=== PATIENT | male | born 1960 | race Caucasian/White ===

== ENCOUNTER 2017-08-22 13:00 | Emergency (ER) | payer OTHER | END 2017-08-22 16:12 | disposition home or self-care (01) | LOC: ER 16:12 | DX: S60.212A Contusion of left wrist, initial encounter (principal); J44.9 Chronic obstructive pulmonary disease, unspecified; M19.90 Unspecified osteoarthritis, unspecified site; I10 Essential (primary) hypertension; W19.XXXA Unspecified fall, initial encounter; Y93.E1 Activity, personal bathing and showering; Y92.89 Other specified places as the place of occurrence of the external cause; Y99.8 Other external cause status | CPT/HCPCS: 73110; 99284 ==

== ENCOUNTER 2017-10-11 07:32 | Emergency (ER) | payer OTHER ==
[2017-10-11] MEDS: IBUPROFEN 800 MG TABLET. PO (09:39)
[2017-10-11] MEDS: HYDROcodone/APAP 5/325MG 1 TAB TABLET PO (09:39)
== END 2017-10-11 09:48 | disposition home or self-care (01) ==
LOC: ER 07:32
DX: S63.501A Unspecified sprain of right wrist, initial encounter (principal); S09.90XA Unspecified injury of head, initial encounter; I10 Essential (primary) hypertension; J44.9 Chronic obstructive pulmonary disease, unspecified; E10.9 Type 1 diabetes mellitus without complications; W01.0XXA Fall on same level from slipping, tripping and stumbling without subsequent striking against object, initial encounter; Y93.89 Activity, other specified; Y99.8 Other external cause status; Y92.89 Other specified places as the place of occurrence of the external cause
CPT/HCPCS: 29125; 70450; 73110; 99284-25

== ENCOUNTER 2018-03-06 21:27 | Emergency (ER) | payer OTHER ==
[~2018-03-06] VITALS: Ht 167.6 cm; Wt 72.6 kg
[~2018-03-06 21:27] MED LIST: IBUP-1060 PO
[2018-03-06] MEDS ORDERED: ONDANSETRON PF 4 MG/2 ML VIAL. IV ONE (22:00)
[2018-03-06] MEDS ORDERED: FAMOTIDINE 20 MG/2 ML VIAL IVP ONE (22:00)
[2018-03-06] MEDS ORDERED: MULTIVIT INFUSN,ADULT 4,VIT K 10 ML, THIAMINE 100 MG, FOLIC ACID 1 MG in IV NORMAL SALI... IV ONE (22:00)
[2018-03-06 22:14] LABS: BASO # 0.1 x10^3/uL (0.0-0.2); BASO % 1 % (0-3); EOS # 0.4 x10^3/uL (0.0-0.7); EOS % 4 % (0-3); HEMATOCRIT 42.5 % (39.0-53.0); HEMOGLOBIN 14.6 g/dL (13.0-17.5); LYMPH # 4.6 x10^3/uL (1.0-4.8); LYMPH % 51 % (24-48); MEAN CORPUSCULAR HEMOGLOBIN 32 pg (25-35); MEAN CORPUSCULAR HGB CONC 34 g/dL (31-37); MEAN CORPUSCULAR VOLUME 92 fL (79-100); MONO # 0.4 x10^3/uL (0.0-1.1); MONO % 4 % (0-9); NEUT # 3.6 x10^3uL (1.8-7.7); NEUT % 40 % (31-73); PLATELET COUNT 162 x10^3/uL (140-400); RED CELL DISTRIBUTION WIDTH 14.4 % (11.5-14.5)
[2018-03-06 22:27] LABS: BARBITURATES NEG (NEG); BENZODIAZEPINES NEG (NEG); CANNABINOIDS NEG (NEG); COCAINE POS (NEG); METHADONE NEG (NEG); OPIATES NEG (NEG); PHENCYCLIDINE NEG (NEG)
[2018-03-06 22:30] VITALS: BP 126/62
[2018-03-06 22:30] LABS: AMPHETAMINE/METHAMPHETAMINE NEG (NEG)
[2018-03-06 22:31] LABS: PROTHROMBIN TIME PATIENT 13.3 SEC (11.7-14.0)
[2018-03-06 22:31] LABS: ALBUMIN 3.8 g/dL (3.4-5.0); ALBUMIN/GLOBULIN RATIO 1.1 (1.0-1.7); CALCIUM 8.5 mg/dL (8.5-10.1); GFR 77.3; TOTAL BILIRUBIN 0.3 mg/dL (0.2-1.0); TOTAL PROTEIN 7.4 g/dL (6.4-8.2)
[2018-03-06 22:36] LABS: POTASSIUM 3.8 mmol/L (3.5-5.1)
--- NOTE | 2018-03-06 22:41 | PHYS DOC ---
Past Medical History Past Medical History: COPD, Diabetes-Type I, Hypertension Past Surgical History: No Surgical History Additional Past Surgical Histo: ARM Alcohol Use: None Drug Use: None Adult General Chief Complaint Chief Complaint: HEMATEMESIS/VOMITING BLOOD HPI HPI 57-year-old male with heavy alcohol abuse history states that he drinks approximately 12 beers daily presents stating that he is vomiting blood. He states he vomits approximately 2 pints of blood every day and has done so for the last 2 weeks. He denies any abdominal pain. He denies any dizziness. He states his stools have been normal in color and caliber. He's never had bleeding before.[] Review of Systems Review of Systems Constitutional: Denies fever or chills [] Eyes: Denies change in visual acuity, redness, or eye pain [] HENT: Denies nasal congestion or sore throat [] Respiratory: Denies cough or shortness of breath [] Cardiovascular: No additional information not addressed in HPI [] GI: Per history of present illness[] : Denies dysuria or hematuria [] Musculoskeletal: Denies back pain or joint pain [] Integument: Denies rash or skin lesions [] Neurologic: Denies headache, focal weakness or sensory changes [] Endocrine: Denies polyuria or polydipsia [] All other systems were reviewed and found to be within normal limits, except as documented in this note. Current Medications Current Medications Current Medications Medications (Trade) Dose Ordered Sig/Zo Start Time Stop Time Status Last Admin Dose Admin Famotidine (Pepcid Vial) 40 mg 1X ONCE 03/06/18 22:00 03/06/18 22:01 DC Multivitamins 10 ml/Thiamine HCl 100 mg/Folic Acid 1 mg/Sodium Chloride 1,011.2 ml @ 1,000.088 mls/hr 1X ONCE 03/06/18 22:00 03/06/18 23:00 03/06/18 22:18 1,000.088 MLS/HR Ondansetron HCl (Zofran) 4 mg 1X ONCE 03/06/18 22:00 03/06/18 22:01 DC 03/06/18 22:18 4 MG Allergies Allergies Allergies Coded Allergies Type Severity Reaction Last Updated Verified No Known Drug Allergies 10/11/17 No Physical Exam Physical Exam Constitutional: Well developed, well nourished, no acute distress, non-toxic appearance. [] HENT: Normocephalic, atraumatic, bilateral external ears normal, oropharynx moist, no oral exudates, nose normal. [] Eyes: PERRLA, EOMI, conjunctiva normal, no discharge. [] Neck: Normal range of motion, no tenderness, supple, no stridor. [] Cardiovascular:Heart rate regular rhythm, no murmur [] Lungs & Thorax: Bilateral breath sounds clear to auscultation [] Abdomen: Bowel sounds normal, soft, no tenderness, no masses, no pulsatile masses. [] Skin: Warm, dry, no erythema, no rash. [] Back: No tenderness, no CVA tenderness. [] Extremities: No tenderness, no cyanosis, no clubbing, ROM intact, no edema. [] Neurologic: Alert and oriented X 3, normal motor function, normal sensory function, no focal deficits noted. [] Psychologic: Affect normal, judgement normal, mood normal. [] Current Patient Data Vital Signs Vital Signs Date Time Temp Pulse Resp B/P (MAP) Pulse Ox O2 Delivery O2 Flow Rate FiO2 03/06/18 21:30 98.3 86 18 134/65 (88) 97 Room Air 98.3 Lab Values Laboratory Tests Test 03/06/18 22:05 03/06/18 22:10 03/06/18 22:15 White Blood Count 9.0 x10^3/uL (4.0-11.0) Red Blood Count 4.60 x10^6/uL (4.30-5.70) Hemoglobin 14.6 g/dL (13.0-17.5) Hematocrit 42.5 % (39.0-53.0) Mean Corpuscular Volume 92 fL (79-100) Mean Corpuscular Hemoglobin 32 pg (25-35) Mean Corpuscular Hemoglobin Concent 34 g/dL (31-37) Red Cell Distribution Width 14.4 % (11.5-14.5) Platelet Count 162 x10^3/uL (140-400) Neutrophils (%) (Auto) 40 % (31-73) Lymphocytes (%) (Auto) 51 % (24-48) H Monocytes (%) (Auto) 4 % (0-9) Eosinophils (%) (Auto) 4 % (0-3) H Basophils (%) (Auto) 1 % (0-3) Neutrophils # (Auto) 3.6 x10^3uL (1.8-7.7) Lymphocytes # (Auto) 4.6 x10^3/uL (1.0-4.8) Monocytes # (Auto) 0.4 x10^3/uL (0.0-1.1) Eosinophils # (Auto) 0.4 x10^3/uL (0.0-0.7) Basophils # (Auto) 0.1 x10^3/uL (0.0-0.2) Ethyl Alcohol Level 229 mg/dL (0-10) H Urine Opiates Screen Neg (NEG) Urine Methadone Screen Neg (NEG) Urine Barbiturates Neg (NEG) Urine Phencyclidine Screen Neg (NEG) Urine Amphetamine/Methamphetamine Neg (NEG) Urine Benzodiazepines Screen Neg (NEG) Urine Cocaine Screen Pos (NEG) Urine Cannabinoids Screen Neg (NEG) Urine Ethyl Alcohol Pos (NEG) Prothrombin Time 13.3 SEC (11.7-14.0) Prothrombin Time INR 1.1 (0.8-1.1) Laboratory Tests 03/06/18 22:05 EKG EKG [] Radiology/Procedures Radiology/Procedures [] Course & Med Decision Making Course & Med Decision Making Pertinent Labs and Imaging studies reviewed. (See chart for details) [ED course: Evaluation reveals a 57-year-old male in absolutely no distress. His physical exam was essentially unremarkable. His laboratory studies including hemoglobin and hematocrit were completely normal. Patient was told that his laboratory studies were normal and then decided that he wanted to leave. I encouraged the patient to stay for potential hospitalization for further evaluation of what he described his hematemesis. However the patient refused. He did not appear intoxicated and I felt he was capable of making this decision to leave.] Dragon Disclaimer Dragon Disclaimer This electronic medical record was generated, in whole or in part, using a voice recognition dictation system. Departure Departure Impression: Primary Impression: Hematemesis Additional Impression: Alcohol abuse Disposition: 01 HOME, SELF-CARE Condition: STABLE Referrals: NO PCP (PCP) Patient Instructions: Alcohol Problems, Hematemesis Additional Instructions: Is imperative that she follow-up with primary care physician in the next 1-2 days. Return to the emergency department with any new or concerning symptoms Problem Qualifiers Primary Impression: Hematemesis Nausea presence: without nausea Qualified Codes: K92.0 - Hematemesis RUKHSANA DEXTER DO Mar 06, 2018 22:41
== END 2018-03-06 22:46 | disposition home or self-care (01) ==
LOC: ER 21:27
DX: K92.0 Hematemesis (principal); I10 Essential (primary) hypertension; E10.9 Type 1 diabetes mellitus without complications; J44.9 Chronic obstructive pulmonary disease, unspecified; F10.10 Alcohol abuse, uncomplicated; Y90.7 Blood alcohol level of 200-239 mg/100 ml
CPT/HCPCS: 36415; 80053; 80307; 83690; 85025; 85610; 96365; 96375; 99284; G0480; J2405; J7030; S0028; G0479

== ENCOUNTER 2021-04-28 04:09 | Inpatient (IN) | payer OTHER ==
[~2021-04-28] VITALS: Ht 170.2 cm; Wt 90.9 kg
[~2021-04-28 04:09] MED LIST changes: +ASPI-886 PO; +HYDR-2761 PO; +LISI-130 PO; +METO-239 PO
--- NOTE | 2021-04-28 04:26 | PHYS DOC ---
Past Medical History Past Medical History: CAD, CHF, COPD, Diabetes-Type II, Hypertension, RI, Seizure Past Surgical History: Other Additional Past Surgical Histo: L ARM, cardiac stents; bilateral carpal igor Smoking Status: Current Every Day Smoker Alcohol Use: None Drug Use: Amphetamine, Other General Adult EDM: Chief Complaint: SHORTNESS OF BREATH HPI: HPI: 60-year-old male patient with a history of smoking, COPD, CAD, CHF presents the emergency department complaining of shortness of air and total body swelling in particular in his groin and his legs that has developed gradually over the course of the past 5 days. He notes that he recently got diagnosed with CHF and is not on diuretics to this point. He feels more fatigued than usual. He admits to trouble urinating for the past 5 days. He is denying chest pain, fever, chills, cough, abdominal pain. He was previously in our hospital 3 months ago and was admitted for a similar presentation and was positive for amphetamines during that encounter. Today, he denies methamphetamine use and says the has not used in quite some time. Review of Systems: Review of Systems: Constitutional: Negative except what was mentioned in HPI. Eyes: Negative except what was mentioned in HPI. HENT: Negative except what was mentioned in HPI. Respiratory: Negative except what was mentioned in HPI. Cardiovascular: Negative except what was mentioned in HPI. GI: Negative except what was mentioned in HPI. : Negative except what was mentioned in HPI. Musculoskeletal: Negative except what was mentioned in HPI. Integument: Negative except what was mentioned in HPI. Neurologic: Negative except what was mentioned in HPI. Heart Score: C/O Chest Pain: No Family History: Family History: non contributory Allergies: Allergies: Allergies Coded Allergies Type Severity Reaction Last Updated Verified ibuprofen Allergy Mild NAUSEA 01/18/21 Yes Physical Exam: PE: Constitutional: Moderate distress, patient is obviously swollen everywhere. HENT: Atraumatic, bilateral external ears normal, nose normal. Eyes: PERRLA, EOMI, conjunctiva normal, no discharge. Neck: Normal range of motion, supple, no stridor. Cardiovascular: Tachycardic. 2+ radial pulses Lungs & Thorax: No respiratory distress, symmetrical expansion. Breath sounds quiet on left side, slight wheeze in on right side Abdomen: Soft, no tenderness. Abdomen is swollen, and groin is swollen Genitourinary: Testicles and penis are swollen with edema Skin: Warm, dry. Extremities: No tenderness, no cyanosis, ROM intact, 2+ edema lower extremities and equal Neurologic: Alert and oriented X 3, normal motor function, normal sensory function, no focal deficits noted. GCS 15. Psychologic: Affect normal, judgment normal, mood normal. Current Patient Data: Labs: Laboratory Tests Test 04/28/21 04:25 04/28/21 04:35 White Blood Count 6.6 x10^3/uL (4.0-11.0) Red Blood Count 5.05 x10^6/uL (4.30-5.70) Hemoglobin 15.2 g/dL (13.0-17.5) Hematocrit 46.0 % (39.0-53.0) Mean Corpuscular Volume 91 fL (79-100) Mean Corpuscular Hemoglobin 30 pg (25-35) Mean Corpuscular Hemoglobin Concent 33 g/dL (31-37) Red Cell Distribution Width 17.1 % (11.5-14.5) Platelet Count 176 x10^3/uL (140-400) Neutrophils (%) (Auto) 59 % (31-73) Lymphocytes (%) (Auto) 29 % (24-48) Monocytes (%) (Auto) 9 % (0-9) Eosinophils (%) (Auto) 2 % (0-3) Basophils (%) (Auto) 1 % (0-3) Neutrophils # (Auto) 3.9 x10^3/uL (1.8-7.7) Lymphocytes # (Auto) 1.9 x10^3/uL (1.0-4.8) Monocytes # (Auto) 0.6 x10^3/uL (0.0-1.1) Eosinophils # (Auto) 0.1 x10^3/uL (0.0-0.7) Basophils # (Auto) 0.1 x10^3/uL (0.0-0.2) Sodium Level 143 mmol/L (136-145) Potassium Level 4.1 mmol/L (3.5-5.1) Chloride Level 105 mmol/L (98-107) Carbon Dioxide Level 32 mmol/L (21-32) Anion Gap 6 (6-14) Blood Urea Nitrogen 16 mg/dL (8-26) Creatinine 1.4 mg/dL (0.7-1.3) Estimated GFR (Cockcroft-Gault) 51.9 BUN/Creatinine Ratio 11 (6-20) Glucose Level 91 mg/dL (70-99) Calcium Level 9.0 mg/dL (8.5-10.1) Total Bilirubin 0.8 mg/dL (0.2-1.0) Aspartate Amino Transf (AST/SGOT) 36 U/L (15-37) Alanine Aminotransferase (ALT/SGPT) 34 U/L (16-63) Alkaline Phosphatase 76 U/L (46-116) Troponin I Quantitative 0.132 ng/mL (0.000-0.055) TW-Dwf-N-Type Natriuretic Peptide 27611 pg/mL (0-124) Total Protein 8.5 g/dL (6.4-8.2) Albumin 4.0 g/dL (3.4-5.0) Albumin/Globulin Ratio 0.9 (1.0-1.7) Urine Collection Type Unknown Urine Color Yellow Urine Clarity Clear Urine pH 5.5 (<5.0-8.0) Urine Specific [place] 1.015 (1.000-1.030) Urine Protein 30 mg/dL (NEG-TRACE) Urine Glucose (UA) Negative mg/dL (NEG) Urine Ketones (Stick) Negative mg/dL (NEG) Urine Blood Moderate (NEG) Urine Nitrite Negative (NEG) Urine Bilirubin Negative (NEG) Urine Urobilinogen Dipstick 1.0 mg/dL (0.2 mg/dL) Urine Leukocyte Esterase Negative (NEG) Urine RBC 20-40 /HPF (0-2) Urine WBC Rare /HPF (0-4) Urine Squamous Epithelial Cells Occ /LPF Urine Bacteria 0 /HPF (0-FEW) Urine Mucus Mod /LPF Urine Opiates Screen Neg (NEG) Urine Methadone Screen Neg (NEG) Urine Barbiturates Neg (NEG) Urine Phencyclidine Screen Neg (NEG) Urine Amphetamine/Methamphetamine Pos (NEG) Urine Benzodiazepines Screen Neg (NEG) Urine Cocaine Screen Neg (NEG) Urine Cannabinoids Screen Neg (NEG) Urine Ethyl Alcohol Neg (NEG) Vital Signs: Vital Signs Date Time Temp Pulse Resp B/P (MAP) Pulse Ox O2 Delivery O2 Flow Rate FiO2 04/28/21 04:38 106 175/108 EKG: EKG: Time read: 0447 Sinus tachycardia rate of 106, no ST-T wave changes, no ectopic beats, normal axis, normal TN, QRS, and QTc intervals. Impression: Normal EKG. interpreted by Danis crandall D.O. Radiology/Procedures: Radiology/Procedures: Moderate bilateral airspace opacities consistent with pulmonary edema. Left- sided pleural effusion, no pneumothorax. Cardiomegaly. No widening of mediastinum. No obvious free air seen. Impression: Likely pulmonary edema. Interpreted by Danis crandall D.O. Course & Med Decision Making: Course & Med Decision Making patient with clinical evidence for anasarca, he has a history of meth use and last admission he had a positive troponin as well, his trop was elevated this morning. He was given lasix, ntg, will admit for continued diuresis. bladder scan with 400 cc in bladder and straight cath used to obtain urine, patient felt better. Elevated troponin likely demand ischemia most likely from methamphetamine use. Cardiology consult placed. patient without chest pain here. patient will be admitted to Dr. Roca My Orders - DANIS HAWKINS DO Procedure Category Date Status Time Vital Signs Monitoring ER 04/28/21 Transmitted 04:17 Blood Pressure ER 04/28/21 Transmitted Monitoring 04:17 Cardiac Monitoring ER 04/28/21 Transmitted 04:17 Cbc W [employer] LAB 04/28/21 Complete 04:17 Ua, Cult If Indicated LAB 04/28/21 Complete 04:17 Drugs Of Abuse Ur LAB 04/28/21 Complete 04:17 Portable Chest 1v RAD 04/28/21 Logged 04:17 Nt-Pro Bnp LAB 04/28/21 Complete 04:17 Troponini LAB 04/28/21 Complete 04:17 Troponini LAB 04/28/21 Logged 07:17 Troponini LAB 04/28/21 Logged 10:17 Comprehensive LAB 04/28/21 Complete Metabolic Panel 04:17 Furosemide Inj (Lasix) PHA 04/28/21 Complete 05:00 Nitroglycerin PHA 04/28/21 In Process Sublingual (Nitrostat) 04:30 12 Lead Ekg EKG 04/28/21 Logged 04:20 Er Bridge Order ADT 04/28/21 Transmitted 04:57 Code Status CODE 04/28/21 Transmitted 04:57 Vital Signs, Per Unit TONY 04/28/21 In Process Protocol 04:57 Cardiac DIET 04/28/21 Transmitted Breakfast Ondansetron Pf PHA 04/28/21 In Process (Zofran) 05:00 Acetaminophen PHA 04/28/21 In Process (Tylenol) 05:00 Consult Physician By CONS 04/28/21 Transmitted Name 04:57 Vital Signs Q4h TONY 04/28/21 In Process 04:57 Departure Departure Impression: Primary Impression: Anasarca Additional Impressions: Amphetamine abuse CHF (congestive heart failure) Disposition: 09 ADMITTED INPATIENT Admitting Physician: VITALIY Noble) Condition: STABLE Referrals: NO PCP (PCP) DANIS HAWKINS DO Apr 28, 2021 04:26
[2021-04-28] MEDS ORDERED: NITROGLYCERIN SUBLINGUAL 0.4 MG BOTTLE OF 25. SL PRN (04:30)
[2021-04-28 04:34] LABS: BASO # 0.1 x10^3/uL (0.0-0.2); BASO % 1 % (0-3); EOS # 0.1 x10^3/uL (0.0-0.7); EOS % 2 % (0-3); HEMOGLOBIN 15.2 g/dL (13.0-17.5); LYMPH # 1.9 x10^3/uL (1.0-4.8); LYMPH % 29 % (24-48); MEAN CORPUSCULAR HEMOGLOBIN 30 pg (25-35); MEAN CORPUSCULAR HGB CONC 33 g/dL (31-37); MEAN CORPUSCULAR VOLUME 91 fL (79-100); MONO # 0.6 x10^3/uL (0.0-1.1); MONO % 9 % (0-9); NEUT # 3.9 x10^3/uL (1.8-7.7); NEUT % 59 % (31-73); PLATELET COUNT 176 x10^3/uL (140-400); RED BLOOD COUNT 5.05 x10^6/uL (4.30-5.70); RED CELL DISTRIBUTION WIDTH 17.1 % (11.5-14.5); WHITE BLOOD COUNT 6.6 x10^3/uL (4.0-11.0)
[2021-04-28 04:41] LABS: BILIRUBIN,URINE NEGATIVE (NEG); CLARITY,URINE CLEAR; COLOR,URINE YELLOW; NITRITE,URINE NEGATIVE (NEG); PH,URINE 5.5 (<5.0-8.0); PROTEIN,URINE 30 mg/dL (NEG-TRACE)
[2021-04-28 04:43] LABS: CREATININE 1.4 mg/dL (0.7-1.3); GFR 51.9; POTASSIUM 4.1 mmol/L (3.5-5.1)
[2021-04-28 04:46] LABS: BACTERIA,URINE 0 /HPF (0-FEW); RBC,URINE 20-40 /HPF (0-2); WBC,URINE RARE /HPF (0-4)
[2021-04-28 04:48] LABS: AMPHETAMINE/METHAMPHETAMINE POS (NEG); BARBITURATES NEG (NEG); BENZODIAZEPINES NEG (NEG); CANNABINOIDS NEG (NEG); COCAINE NEG (NEG); METHADONE NEG (NEG); OPIATES NEG (NEG); PHENCYCLIDINE NEG (NEG)
[2021-04-28 04:49] LABS: ALBUMIN/GLOBULIN RATIO 0.9 (1.0-1.7); TOTAL BILIRUBIN 0.8 mg/dL (0.2-1.0); TOTAL PROTEIN 8.5 g/dL (6.4-8.2)
[2021-04-28] MEDS ORDERED: ACETAMINOPHEN 325 MG TABLET. PO PRN (05:00)
[2021-04-28] MEDS ORDERED: FUROSEMIDE 40 MG/4 ML VIAL. IVP ONE (05:00)
[2021-04-28] MEDS ORDERED: ONDANSETRON PF 4 MG/2 ML VIAL. IVP PRN (05:00)
[2021-04-28 06:30] VITALS: BP 158/95
--- NOTE | 2021-04-28 06:30 | NUR ---
Pt admitted to room 673 from ER via cart. Pt ambulatory to bed. Pt placed on heart monitor and SPO2 monitoring. Pt reports SOA on exertion, audible wheeze heard. Pt reports cough. Pt has generalized edema all over body. Full assessment not completed, as next shift will perform admission assessment d/t shift change. Admission history done. Pt knows the pharmacy he uses, but does not know his medication names that he takes. Call light given to pt and instructed on use, pt alem. Will report to next shift.
[2021-04-28] MEDS ORDERED: FLU VACC QUAD 21-22 (6MOS+) PF 0.5 ML SYRINGE. VAX IM ONE (07:00)
--- NOTE | 2021-04-28 08:13 | RAD ---
EXAMINATION: Chest radiograph. VIEWS: Single view COMPARISON: 01/21/2021 INDICATION:60 years, Male, shortness of breath. FINDINGS: Stable cardiomegaly. Similar diffuse bilateral interstitial reticulations. New small left pleural eff usion. No pneumothorax. No acute osseous process. IMPRESSION: 1. Findings suggesting of interstitial pulmonary edema versus atypical pneumonia. 2. New small left pleural effusion. Electronically signed by: Ayala Pope MD (04/28/2021 8:11 AM) [id number]
[2021-04-28] MEDS ORDERED: LISI20TA18 PO (09:30)
--- NOTE | 2021-04-28 10:06 | PDOC2 ---
AIDA BARBOSA BURRER HAND 04/28/21 1006: CARDIAC CONSULT DATE OF CONSULT Date of Consult DATE: 04/28/21 TIME: 09:57 REASON FOR CONSULT Reason for Consult: Elevated trop, CHF REFERRING PHYSICIAN Referring Physician: Dr. Roca SOURCE Source: Chart review, Patient HISTORY OF PRESENT ILLNESS HISTORY OF PRESENT ILLNESS This is a 60 yo male who presented secondary to shortness of breath and fluid retention. Patient reports he has been short of breath and retaining fluid for the last couple of months. Has been worse in the last couple of weeks. Reports compliance with medications, although cannot tell me what he takes. Denies any chest pain, palpitations, dizziness, diaphoresis, or nausea/vomiting. No recent fevers or illness. Reports swelling in his bilateral LE up the tight level. Also retaining fluid in his abdomen. Denies drug use, but UDS + for methamphetamines. PAST MEDICAL HISTORY Cardiovascular: AFIB (s/p ablation ), CAD, CHF, HTN, Hyperlipidemia Pulmonary: Asthma, COPD GI: GERD Hepatobiliary: Cirrhosis Psych: Addictions Endocrine: Diabetes PAST SURGICAL HISTORY Past Surgical History: Other (see PMH) FAMILY HISTORY Family History: Hypertension SOCIAL HISTORY Smoke: <1 pack per day ALCOHOL: none Drugs: Crystal meth Lives: Roommate CURRENT MEDICATIONS CURRENT MEDICATIONS Current Medications Medications (Trade) Dose Ordered Sig/Zo Route PRN Reason Start Time Stop Time Status Last Admin Dose Admin Furosemide (Lasix) 40 mg 1X ONCE IVP 04/28/21 05:00 04/28/21 05:01 DC 04/28/21 04:37 Nitroglycerin (Nitrostat) 0.4 mg PRN Q5MIN PRN SL CHEST PAIN 04/28/21 04:30 04/28/21 04:38 ALLERGIES ALLERGIES: Coded Allergies: ibuprofen (Verified Adverse Reaction, Intermediate, NAUSEA, 04/28/21) ROS Review of System 14 point ROS conducted with pertinent positives noted above in hPI PHYSICAL EXAM General: Alert, Oriented X3, Cooperative, No acute distress HEENT: Atraumatic Lungs: Other (crackles ) Heart: Regular rate (SR/St) Abdomen: Other (ascites ) Extremities: Other (2-3+ bilateral LE edema up to thigh level ) Neuro: Normal speech, Sensation intact Psych/Mental Status: Mental status NL, Mood NL MUSCULOSKELETAL: Osteoarthritic changes both hands VITALS/I&O VITALS/I&O: Vital Signs Date Time Temp Pulse Resp B/P (MAP) Pulse Ox O2 Delivery O2 Flow Rate FiO2 04/28/21 06:30 97.7 99 18 158/95 (116) 99 Nasal Cannula 2.0 97.7 I & O 04/27/21 04/27/21 04/28/21 15:00 23:00 07:00 Output Total 400 ml Balance -400 ml LABS Lab: Laboratory Tests Test 04/28/21 04:25 04/28/21 04:35 04/28/21 06:13 04/28/21 07:15 White Blood Count 6.6 x10^3/uL (4.0-11.0) Red Blood Count 5.05 x10^6/uL (4.30-5.70) Hemoglobin 15.2 g/dL (13.0-17.5) Hematocrit 46.0 % (39.0-53.0) Mean Corpuscular Volume 91 fL (79-100) Mean Corpuscular Hemoglobin 30 pg (25-35) Mean Corpuscular Hemoglobin Concent 33 g/dL (31-37) Red Cell Distribution Width 17.1 % (11.5-14.5) H Platelet Count 176 x10^3/uL (140-400) Neutrophils (%) (Auto) 59 % (31-73) Lymphocytes (%) (Auto) 29 % (24-48) Monocytes (%) (Auto) 9 % (0-9) Eosinophils (%) (Auto) 2 % (0-3) Basophils (%) (Auto) 1 % (0-3) Neutrophils # (Auto) 3.9 x10^3/uL (1.8-7.7) Lymphocytes # (Auto) 1.9 x10^3/uL (1.0-4.8) Monocytes # (Auto) 0.6 x10^3/uL (0.0-1.1) Eosinophils # (Auto) 0.1 x10^3/uL (0.0-0.7) Basophils # (Auto) 0.1 x10^3/uL (0.0-0.2) Sodium Level 143 mmol/L (136-145) Potassium Level 4.1 mmol/L (3.5-5.1) Chloride Level 105 mmol/L (98-107) Carbon Dioxide Level 32 mmol/L (21-32) Anion Gap 6 (6-14) Blood Urea Nitrogen 16 mg/dL (8-26) Creatinine 1.4 mg/dL (0.7-1.3) H Estimated GFR (Cockcroft-Gault) 51.9 BUN/Creatinine Ratio 11 (6-20) Glucose Level 91 mg/dL (70-99) Calcium Level 9.0 mg/dL (8.5-10.1) Total Bilirubin 0.8 mg/dL (0.2-1.0) Aspartate Amino Transferase (AST) 36 U/L (15-37) Alanine Aminotransferase (ALT) 34 U/L (16-63) Alkaline Phosphatase 76 U/L (46-116) Troponin I Quantitative 0.132 ng/mL (0.000-0.055) 0.109 ng/mL (0.000-0.055) TC-Awp-V-Type Natriuretic Peptide 97385 pg/mL (0-124) H Total Protein 8.5 g/dL (6.4-8.2) H Albumin 4.0 g/dL (3.4-5.0) Albumin/Globulin Ratio 0.9 (1.0-1.7) L Urine Collection Type Unknown Urine Color Yellow Urine Clarity Clear Urine pH 5.5 (<5.0-8.0) Urine Specific [place] 1.015 (1.000-1.030) Urine Protein 30 mg/dL (NEG-TRACE) Urine Glucose (UA) Negative mg/dL (NEG) Urine Ketones (Stick) Negative mg/dL (NEG) Urine Blood Moderate (NEG) Urine Nitrite Negative (NEG) Urine Bilirubin Negative (NEG) Urine Urobilinogen Dipstick 1.0 mg/dL (0.2 mg/dL) Urine Leukocyte Esterase Negative (NEG) Urine RBC 20-40 /HPF (0-2) Urine WBC Rare /HPF (0-4) Urine Squamous Epithelial Cells Occ /LPF Urine Bacteria 0 /HPF (0-FEW) Urine Mucus Mod /LPF Urine Opiates Screen Neg (NEG) Urine Methadone Screen Neg (NEG) Urine Barbiturates Neg (NEG) Urine Phencyclidine Screen Neg (NEG) Urine Amphetamine/Methamphetamine Pos (NEG) Urine Benzodiazepines Screen Neg (NEG) Urine Cocaine Screen Neg (NEG) Urine Cannabinoids Screen Neg (NEG) Urine Ethyl Alcohol Neg (NEG) SARS-CoV-2 RNA (OFELIA) Negative (Negative) SARS-CoV-2 Antigen (Rapid) Negative (NEGATIVE) Laboratory Tests 04/28/21 04:25 Laboratory Tests 04/28/21 04:25 EKG EKG INTRACARDIAC CATHETER ABLATION WITH COMPREHENSIVE ELECTROPHYSIOLOGIC EVALUATION - ATRIAL TACHYCARDIA Study date: 11/13/20 IMPRESSION: Successful CTI-dependent Atrial Flutter ablation Intra-atrial pacing and intraventricular pacing. PLAN: - Pain control as needed - Remove sheaths in recovery - Bedrest 6 hours after sheath removal - Anti-arrhythmic drug: None --- resume Toprol-XL 25 mg daily for heart failure - Anticoagulation: Resume Xarelto as soon as 4 hours after sheath removal if hemostasis present and no hematoma - Follow-up: EP RHIANNON in [address] Faustin as needed ECHOCARDIOGRAM ECHOCARDIOGRAM 11/13/20 - TRANSESOPHAGEAL ECHO Interpretation Summary Study performed to assess for LA thrombus prior to planned ablation. Left Atrium: No thrombus present in left atrium or left atrial appendage. No spontaneous echo contrast. Patent foramen ovale present with left to right shunting indicated by color flow Doppler. The left ventricular systolic function is moderately reduced. The visually estimated ejection fraction is 35%. There is diffuse hypokinesis. The right ventricle is mildly dilated. The right ventricular systolic function is moderately reduced. Mitral Valve: Normal valve structure. Mild to moderate regurgitation. No pericardial effusion. 3-D imaging was performed during the procedure for further evaluation of cardiac structure and function. See remainder of report for additional findings. DATE: 01/19/21 <Conclusion> The left ventricle is normal size. The ejection fraction is moderately severely impaired. The Ejection Fraction is 30 to 35%. Global hypokinesis is present but worse in the septal wall. Doppler and Color Flow revealed no significant aortic regurgitation. There is no significant aortic valvular stenosis. Doppler and Color-flow revealed moderate mitral regurgitation. Doppler and Color Flow revealed mild to moderate tricuspid regurgitation. 03/21/21 - 2D + DOPPLER ECHO Interpretation Summary Moderately dilated LV cavity size with eccentric hypertrophy and severely reduced global systolic function, EF ~ 20-25% Grade III (severe) left ventricle diastolic dysfunction. Mildly enlarged right ventricle with moderately reduced systolic function Mild left atrial enlargement. Moderate right atrial margin Dilated mitral annulus with moderate regurgitation Dilated tricuspid annulus with moderate regurgitation Estimated peak systolic PA pressure = 44 mmHg No pericardial effusion Compared with the prior echo/Doppler study on 5-7-21, there has been further interval decline in global LV systolic function. The patient appears to be in sinus rhythm on the current study. The previous study appeared to be atrial fibrillation. HEART CATH HEART CATH CARDIAC CATHETERIZATION REPORT DATE: 11/11/2020 SELECTIVE CORONARY ANGIOGRAPHY: Left main: The left main coronary artery arises normally from the left coronary cusp and gives rise to left anterior descending and left circumflex arteries. It has a 20% stenosis in its distal portion. Left anterior descending artery: The left anterior descending artery is a large caliber vessel and gives rise to 4 diagonals along its course. The proximal LAD has 20% to 30% stenosis. The midportion of the LAD after the takeoff of the 3rd diagonal has 30% to 40% stenosis. There is moderate 60% to 70% stenosis of the ostial 3rd diagonal. Left circumflex artery: The left circumflex artery has a 50% stenosis in its proximal portion with an eccentric plaque. It gives rise to 1 obtuse marginal branch which has a severe 70% stenosis in its midportion. Right coronary artery: The right coronary artery arises normally from the right coronary cusp and is a dominant vessel. It distally bifurcates into the right PDA and PLV branches. It has a 30% to 40% stenosis in its proximal portion and a 50% stenosis in its distal portion. The LVEDP was 30 mmHg. CONTRAST: 60cc AIR KERMA: 536 mGy FLUOROSCOPY TIME: 5.5 minutes FINAL IMPRESSION: Moderate obstructive coronary artery disease involving the LAD and moderate to severe coronary artery disease involving the circumflex artery as described above. Increased left and right-sided filling pressures. Low cardiac output/index. ASSESSMENT/PLAN ASSESSMENT/PLAN 1. Acute respiratory failure secondary to CHF 2. Acute on chronic systolic CHF 3. Nonischemic cardiomyopathy ; recent echo with LVEF 20-25% 4. CAD; recent cath with moderate nonobstructive disease as noted above. 5. Mild troponin elevation; peak 0.13. Type II, demand ischemia 6. PAFIB/flutter; s/p recent cardiac ablation at by Dr. Faustin as noted above. Previously on Xarelto for stroke prophylaxis. Presently SR 7. Accelerated hypertension; laible 8. Hyperlipidemia 9. Diabetes, II 10. CAROL 11. PAD; recent arterial duplex with concerns for right common iliac artery occlusion. Was evaluated by vascular at that time. No critical limb ischemia present 12. Cirrhosis; KAMARA vs alcohol related given h/o heavy use 13. Tobaccoism 14. Substance abuse; UDS + for methamphetamines 15. Suspected noncompliance Recommendations Diuresis with monitoring or renal function 2000cc FR, 2Gm Na diet Monitor daily weight, I and O's Secondary prevention measures Resume home therapy; metoprolol, losartan, spironolactone . Xarelto for stroke prophylaxis No statin with liver disease Supportive care Consider for outpatient ICD therapies if compliance can be established Discussed/encouraged compliance and cessation from recreational drugs. YO MEAD MD 04/29/21 1417: CARDIAC CONSULT ASSESSMENT/PLAN ASSESSMENT/PLAN Patient seen and examined 04/28/2021. Agree with VARNISHER APPRENTICE's assessment and plan. Acute respiratory failure secondary to acute on chronic systolic heart failure. 2D echo showed LVEF 20 to 25%. Slight troponin elevation probably demand ischemia. Recent cardiac catheterization showed moderate nonobstructive coronary artery disease. Continue diuresis with close monitoring of renal function. PAF s/p ablation maintaining sinus rhythm PAD clinically stable Agree with outpatient evaluation for AICD implantation Thank you for your consultation AIDA BARBOSA APRN Apr 28, 2021 10:06 YO MEAD MD Apr 29, 2021 14:17
[2021-04-28 10:52] VITALS: BP 151/78
[2021-04-28] MEDS ORDERED: LISINOPRIL 20 MG TABLET PO SCH (12:00)
--- NOTE | 2021-04-28 12:08 | HP ---
DATE OF SERVICE: 04/28/2021 ADMIT DATE: 04/28/2021 CHIEF COMPLAINT: Shortness of breath and fluid retention. HISTORY OF PRESENT ILLNESS: The patient is a pleasant 60-year-old male with a previous known coronary artery disease and heart failure. He basically presented with volume overload, shortness of breath. He was somewhat hypoxic in the ER, chest x-ray was showing vascular congestion. His BNP level was 10,144. His troponin was a little high at 1.3. I discussed the case with ER physician. We are going to admit the patient for diuresis and cardiac monitoring and consultation with Cardiology. PAST MEDICAL HISTORY: CHF, CAD, COPD, diabetes, hypertension, myocardial infarction, seizures, left arm surgery, cardiac stents, bilateral carpal tunnel surgery, tobacco abuse, amphetamine abuse. ALLERGIES: IBUPROFEN. FAMILY HISTORY: Coronary artery disease. SOCIAL HISTORY: He smokes and apparently uses amphetamine. No other drugs. MEDICATIONS: Reviewed, please refer to the MRAD, he is on metoprolol 25 a day, lisinopril 20 a day, and aspirin 81 a day. PHYSICAL EXAMINATION: VITALS: Within normal limits and are stable. GENERAL: Resting with no apparent distress. HEENT: Normal cephalic atraumatic, external auditory canals are patent EYES: Extraocular muscles are intact, pupils are equally round and reactive to light and accommodation MUSCULOSKELETAL: Well developed, well nourished, good range of motion ENDOCRINE: No thyromegaly was palpated LYMPHATICS: No cervical chain or axillary nodes were noted HEMATOPOIETIC: No bruising NECK: Supple, no JVD, no thyromegaly was noted. LUNGS: Slight bibasilar crackles. HEART: Distant S1, S2. ABDOMEN: Decreased bowel sounds, little distended. EXTREMITIES: 1-2+ edema. NEUROLOGIC: Resting with no apparent distress. PSYCHIATRIC: He is resting with no apparent distress. SKIN: No ulcerations or rashes, good skin turgor, no jaundice. VASCULAR: Good capillary refill, neurovascular bundle appears to be intact. LABORATORY DATA: Electrolytes: Sodium 143, potassium 4.1, chloride 105, bicarb 32, BUN 16, creatinine 1.4, glucose 91. Troponin 0.132. BNP 10,144. White count 6.6, hemoglobin 15.2, platelets 176. Urinalysis negative. Drug screen positive for amphetamines/methamphetamines. COVID testing is negative. Chest x-ray shows vascular congestion with heart failure versus atypical pneumonia and a small left pleural effusion. By my eye, he appears to have a generous cardiac silhouette as well. His COVID testing was negative. ASSESSMENT AND PLAN: Acute on chronic systolic and diastolic heart failure. The patient has been admitted. We have consulted Cardiology. They have seen the patient. We will continue IV Lasix. Cardiac monitoring, serial enzymes, serial EKGs, trend labs. Home meds. Deep venous thrombosis prophylaxis. Full code. We have ordered a flu vaccine for him. ALESHA DR: Stuart TID: [id number]
[2021-04-28] MEDS ORDERED: FERROUS SULFATE 325 MG TABLET. PO PRN (13:15)
[2021-04-28] MEDS ORDERED: LOSA-73 PO (13:24)
[2021-04-28] MEDS ORDERED: RIVA20TA2 PO (13:24)
[2021-04-28] MEDS ORDERED: SPIR50TA4 PO (13:24)
[2021-04-28] MEDS ORDERED: SERT-267 PO (13:24)
[2021-04-28] MEDS ORDERED: FURO80TA3 PO (13:24)
[2021-04-28] MEDS ORDERED: ATOR20TA58 PO (13:24)
[2021-04-28] MEDS ORDERED: FERR325T14 PO (13:24)
[2021-04-28 14:05] VITALS: BP 177/89
[2021-04-28] MEDS: ASPIRIN ENTERIC COATED 81 MG TABLET.DR. PO SCH (14:33)
[2021-04-28] MEDS: METOPROLOL SUCC 24HR ER 25 MG TAB.ER.24H. PO SCH (14:36)
[2021-04-28] MEDS: FUROSEMIDE 40 MG/4 ML VIAL. IVP SCH (14:36)
--- NOTE | 2021-04-28 15:11 | NUR ---
SS following for discharge planning. SS reviewed pt chart and discussed with pt RN. Pt is from home and is currently requiring oxygen at two liters nasal canula. COVID19 negative. Cardiology consulted. Pt on IV Lasix. SS will continue to follow for discharge planning.
[2021-04-28] MEDS: RIVAROXABAN 10 MG TABLET. PO SCH (18:08)
[2021-04-28 19:50] VITALS: BP 143/67
[2021-04-28] MEDS: ATORVASTATIN CALCIUM 20 MG TABLET PO SCH (20:09)
[2021-04-28 22:50] VITALS: BP 132/65
[2021-04-29 02:31] VITALS: BP 123/75
[2021-04-29 07:00] VITALS: BP 169/89
[2021-04-29] MEDS: SERTRALINE 50 MG TABLET. PO SCH (08:18)
[2021-04-29] MEDS: SPIRONOLACTONE 25 MG TABLET PO SCH (08:19)
[2021-04-29] MEDS: ASPIRIN ENTERIC COATED 81 MG TABLET.DR. PO SCH (08:19)
[2021-04-29] MEDS: LOSARTAN POTASSIUM 50 MG TABLET. PO SCH (08:20)
[2021-04-29] MEDS: METOPROLOL SUCC 24HR ER 25 MG TAB.ER.24H. PO SCH (08:20)
[2021-04-29] MEDS: FUROSEMIDE 40 MG/4 ML VIAL. IVP SCH ×2 (08:21→13:12)
--- NOTE | 2021-04-29 08:58 | PDOC ---
[employer] PROGRESS NOTE Date of Service DOS: DATE: 04/29/21 TIME: 08:58 Chief Complaint Chief Complaint Acute on chronic systolic and diastolic heart failure CAD COPD diabetes hypertension Hx myocardial infarction Hx seizures left arm surgery cardiac stents bilateral carpal tunnel surgery tobacco abuse amphetamine abuse. History of Present Illness History of Present Illness 04/29 Patient seen and examined at bedside No acute overnight events Patient satting ~ 91 on 4L by NC Discussed patient's tobacco use, cessation encouraged Discussed pt's liver, cessation of any hepatotoxic drugs and EtOH encouraged Charts reviewed Discussed with RN and SW Vitals/I&O Vitals/I&O: Vital Signs Date Time Temp Pulse Resp B/P (MAP) Pulse Ox O2 Delivery O2 Flow Rate FiO2 04/29/21 08:20 90 169/89 04/29/21 07:00 98.1 21 91 Nasal Cannula 3.0 98.1 I & O 04/28/21 04/28/21 04/29/21 15:00 23:00 07:00 Intake Total 400 ml 580 ml 700 ml Output Total 2150 ml 2800 ml Balance -1750 ml -2220 ml 700 ml Physical Exam General: Alert, Oriented X3, Cooperative, No acute distress Heart: Regular rate (SR/St) Lungs: Crackles Abdomen: Other (ascites ) Extremities: Other (2-3+ bilateral LE edema up to thigh level ) Skin: No rashes, No breakdown Labs Labs: Laboratory Tests Test 04/28/21 10:55 Troponin I Quantitative 0.090 ng/mL (0.000-0.055) Review of Systems Review of Systems: ROS negative Assessment and Plan Assessmemt and Plan Problems Medical Problems: (1) Amphetamine abuse Status: Acute (2) Anasarca Status: Acute (3) CHF (congestive heart failure) Status: Acute Acute on chronic systolic and diastolic heart failure CAD COPD diabetes hypertension Hx myocardial infarction Hx seizures left arm surgery cardiac stents bilateral carpal tunnel surgery tobacco abuse amphetamine abuse. Plan Cardiology has been following, input appreciated Consult placed to pulmonology and GI, inputs appreciated Continue monitoring on telemetry Continue diuresis Added solumedrol Added DuoNebs Titrate O2 PRN Trend labs Restarted home meds as indicated Full Code Discharge Disposition Pending Comment Review of Relevant I have reviewed the following items villa (where applicable) has been applied. Medications: Current Medications Medications (Trade) Dose Ordered Sig/Zo Route PRN Reason Start Time Stop Time Status Last Admin Dose Admin Aspirin (Ecotrin) 81 mg DAILYWBKFT PO 04/28/21 12:00 04/29/21 08:19 Lisinopril (Prinivil) 20 mg DAILY PO 04/28/21 12:00 04/28/21 15:04 DC 04/28/21 14:34 Metoprolol Succinate (Toprol Xl) 25 mg DAILY PO 04/28/21 12:00 04/29/21 08:20 Atorvastatin Calcium (Lipitor) 20 mg HS PO 04/28/21 21:00 04/28/21 20:09 Losartan Potassium (Cozaar) 25 mg DAILY PO 04/29/21 09:00 04/29/21 08:20 Rivaroxaban (Xarelto) 20 mg DAILYWSUP PO 04/28/21 17:00 04/28/21 18:08 Spironolactone (Aldactone) 50 mg DAILY PO 04/29/21 09:00 04/29/21 08:19 Furosemide (Lasix) 40 mg [id number] IVP 04/28/21 14:00 04/29/21 08:21 Sertraline HCl (Zoloft) 50 mg DAILY PO 04/29/21 09:00 04/29/21 08:18 Justifications for Admission Other Justification SUPRIYA AGOSTO III DO Apr 29, 2021 08:58
[2021-04-29] MEDS ORDERED: methylPREDNISolone SOD SUCC PF 40 MG/ML VIAL. IV SCH (10:00)
[2021-04-29 11:00] VITALS: BP 126/60
[2021-04-29 11:06] LABS: PROTHROMBIN TIME PATIENT 20.6 SEC (11.7-14.0)
--- NOTE | 2021-04-29 11:34 | PDOC2 ---
GI CONSULT Date of Service: DATE: 04/29/21 TIME: 11:18 Reason For Consult: cirrhosis HPI: HPI: 60 y/o male evaluated in ER for shortness of breath and swelling (tells me legs and scrotum), admitted w/ resp failure/CHF. He denies GI complaints. He was told he had cirrhosis at . "They didn't know why." He doesn't see any doctors currently. Denies reflux/heartburn, dysphagia, n/v, abd pain, diarrhea, constipation, h ematochezia, melena, change in appetite, or weight loss. CT A/P in 01/2021 noted nodular contour of liver and diverticulosis. He thinks he had previous EGD and colonoscopy but that was years ago and he can't remember where. Denies GB, pancreas, and PUD history. He mentions occasional hemoptysis and hematuria. 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 On Xarelto, ASA, Lasix, Aldactone, and iron here. PMH: PMH: A Fib, CAD, CHF, NICM, HTN, HLD, asthma, COPD, DM cardiac ablation, cardiac cath FH: Family History: Other (not sure) Social History: Smoke: <1 pack per day ALCOHOL: heavy (tells me sober since his 30s but was seen intoxicated in our ER in 2018 ) Drugs: Marijuana (he says long ago), Crystal meth (tox screen +, he denies rec ent use) ROS: GEN: Denies fevers, chills, sweats HEENT: Denies blurred vision, sore throat CV: Denies chest pain RESP: breathing better today GI: Per HPI : +hematuria ENDO: Denies weight changes NEURO: Denies confusion, dizziness MSK: Denies weakness, joint pain/swelling SKIN: Denies jaundice, pruritus Vitals: Vitals: Vital Signs Date Time Temp Pulse Resp B/P (MAP) Pulse Ox O2 Delivery O2 Flow Rate FiO2 04/29/21 11:00 97.8 88 19 126/60 (82) 96 Room Air 97.8 04/29/21 08:00 4.0 Labs: Labs: Laboratory Tests Test 04/29/21 10:20 Prothrombin Time 20.6 SEC (11.7-14.0) Prothromb Time International Ratio 1.8 (0.8-1.1) Allergies: Coded Allergies: ibuprofen (Verified Adverse Reaction, Intermediate, NAUSEA, 04/28/21) Medications: Current Medications Medications (Trade) Dose Ordered Sig/Zo Route PRN Reason Start Time Stop Time Status Last Admin Dose Admin Aspirin (Ecotrin) 81 mg DAILYWBKFT PO 04/28/21 12:00 04/29/21 08:19 Lisinopril (Prinivil) 20 mg DAILY PO 04/28/21 12:00 04/28/21 15:04 DC 04/28/21 14:34 Metoprolol Succinate (Toprol Xl) 25 mg DAILY PO 04/28/21 12:00 04/29/21 08:20 Atorvastatin Calcium (Lipitor) 20 mg HS PO 04/28/21 21:00 04/28/21 20:09 Losartan Potassium (Cozaar) 25 mg DAILY PO 04/29/21 09:00 04/29/21 08:20 Rivaroxaban (Xarelto) 20 mg DAILYWSUP PO 04/28/21 17:00 04/28/21 18:08 Spironolactone (Aldactone) 50 mg DAILY PO 04/29/21 09:00 04/29/21 08:19 Furosemide (Lasix) 40 mg [id number] IVP 04/28/21 14:00 04/29/21 08:21 Sertraline HCl (Zoloft) 50 mg DAILY PO 04/29/21 09:00 04/29/21 08:18 Methylprednisolone Sodium Succinate (SOLU-Medrol 40MG VIAL) 40 mg Q12HR IV 04/29/21 10:00 04/29/21 10:23 Imaging: Imaging: CXR 04/28 IMPRESSION: 1. Findings suggesting of interstitial pulmonary edema versus atypical pneumonia. 2. New small left pleural effusion. PE: GEN: NAD HEENT: Atraumatic, PERRL LUNGS: diminished anteriorly, NC 4L HEART: RRR ABD: NABS, S/ND/NT EXTREMITY: BLE and scrotal edema SKIN: No rashes, no jaundice NEURO/PSYCH: A & O 3 A/P: A/P: Resp failure/CHF, NICM Possible cirrhosis, h/o alcohol abuse CRC screen - ?had colonoscopy at some point - details unclear Diverticulosis +meth COVID negative -- Continue per cardiology. Re: possible cirrhosis, plt and LFTs are currently normal, though INR is 1.8. We will check viral Hepatitis panel and liver US. Question if actually compliant w/ medications. Encouraged avoidance of drugs and alcohol. Details re: past scopes unclear - probably should at least have surveillance colonoscopy as outpt. ELEAZAR NIELSON Apr 29, 2021 11:34
[2021-04-29] MEDS: IPRATRPIUM/ALBUTEROL 0.5/2.5MG 3 ML NEBU. NEB SCH ×4 (11:43→21:04)
[2021-04-29 11:57] LABS: BASE EXCESS ABG 5 mmol/L (-3-3); HCO3 ABG 31 mmol/L (21-28); PCO2 ABG 53 mmHg (35-46); PO2 ABG 78 mmHg (65-108); SAT O2 ABG 94 % (92-99)
[2021-04-29 11:59] LABS: FIO2 ABG 36/4L
--- NOTE | 2021-04-29 13:17 | PDOC ---
PULMONARY PROGRESS NOTES DATE: 04/29/21 TIME: 13:17 Vitals Vital Signs Date Time Temp Pulse Resp B/P (MAP) Pulse Ox O2 Delivery O2 Flow Rate FiO2 04/29/21 11:46 96 Nasal Cannula 4.0 04/29/21 11:00 97.8 88 19 126/60 (82) 97.8 Lungs: Crackles Labs Laboratory Tests Test 04/28/21 04:25 04/28/21 04:35 04/28/21 06:13 04/28/21 07:15 White Blood Count 6.6 x10^3/uL (4.0-11.0) Red Blood Count 5.05 x10^6/uL (4.30-5.70) Hemoglobin 15.2 g/dL (13.0-17.5) Hematocrit 46.0 % (39.0-53.0) Mean Corpuscular Volume 91 fL (79-100) Mean Corpuscular Hemoglobin 30 pg (25-35) Mean Corpuscular Hemoglobin Concent 33 g/dL (31-37) Red Cell Distribution Width 17.1 % (11.5-14.5) Platelet Count 176 x10^3/uL (140-400) Neutrophils (%) (Auto) 59 % (31-73) Lymphocytes (%) (Auto) 29 % (24-48) Monocytes (%) (Auto) 9 % (0-9) Eosinophils (%) (Auto) 2 % (0-3) Basophils (%) (Auto) 1 % (0-3) Neutrophils # (Auto) 3.9 x10^3/uL (1.8-7.7) Lymphocytes # (Auto) 1.9 x10^3/uL (1.0-4.8) Monocytes # (Auto) 0.6 x10^3/uL (0.0-1.1) Eosinophils # (Auto) 0.1 x10^3/uL (0.0-0.7) Basophils # (Auto) 0.1 x10^3/uL (0.0-0.2) Sodium Level 143 mmol/L (136-145) Potassium Level 4.1 mmol/L (3.5-5.1) Chloride Level 105 mmol/L (98-107) Carbon Dioxide Level 32 mmol/L (21-32) Anion Gap 6 (6-14) Blood Urea Nitrogen 16 mg/dL (8-26) Creatinine 1.4 mg/dL (0.7-1.3) Estimated GFR (Cockcroft-Gault) 51.9 BUN/Creatinine Ratio 11 (6-20) Glucose Level 91 mg/dL (70-99) Calcium Level 9.0 mg/dL (8.5-10.1) Total Bilirubin 0.8 mg/dL (0.2-1.0) Aspartate Amino Transf (AST/SGOT) 36 U/L (15-37) Alanine Aminotransferase (ALT/SGPT) 34 U/L (16-63) Alkaline Phosphatase 76 U/L (46-116) Troponin I Quantitative 0.132 ng/mL (0.000-0.055) 0.109 ng/mL (0.000-0.055) UY-Avh-T-Type Natriuretic Peptide 97041 pg/mL (0-124) Total Protein 8.5 g/dL (6.4-8.2) Albumin 4.0 g/dL (3.4-5.0) Albumin/Globulin Ratio 0.9 (1.0-1.7) Urine Collection Type Unknown Urine Color Yellow Urine Clarity Clear Urine pH 5.5 (<5.0-8.0) Urine Specific [place] 1.015 (1.000-1.030) Urine Protein 30 mg/dL (NEG-TRACE) Urine Glucose (UA) Negative mg/dL (NEG) Urine Ketones (Stick) Negative mg/dL (NEG) Urine Blood Moderate (NEG) Urine Nitrite Negative (NEG) Urine Bilirubin Negative (NEG) Urine Urobilinogen Dipstick 1.0 mg/dL (0.2 mg/dL) Urine Leukocyte Esterase Negative (NEG) Urine RBC 20-40 /HPF (0-2) Urine WBC Rare /HPF (0-4) Urine Squamous Epithelial Cells Occ /LPF Urine Bacteria 0 /HPF (0-FEW) Urine Mucus Mod /LPF Urine Opiates Screen Neg (NEG) Urine Methadone Screen Neg (NEG) Urine Barbiturates Neg (NEG) Urine Phencyclidine Screen Neg (NEG) Urine Amphetamine/Methamphetamine Pos (NEG) Urine Benzodiazepines Screen Neg (NEG) Urine Cocaine Screen Neg (NEG) Urine Cannabinoids Screen Neg (NEG) Urine Ethyl Alcohol Neg (NEG) SARS-CoV-2 RNA (OFELIA) Negative (Negative) SARS-CoV-2 Antigen (Rapid) Negative (NEGATIVE) Test 04/28/21 10:55 04/29/21 10:20 04/29/21 10:04/29/21 11:52 Troponin I Quantitative 0.090 ng/mL (0.000-0.055) Prothrombin Time 20.6 SEC (11.7-14.0) Prothromb Time International Ratio 1.8 (0.8-1.1) Hepatitis A IgM Antibody Nonreactive (Nonreactive) Hepatitis B Surface Antigen Nonreactive (Nonreactive) Hepatitis B Core IgM Antibody Nonreactive (Nonreactive) Hepatitis C IgG Antibody Nonreactive (Nonreactive) O2 Saturation 94 % (92-99) Arterial Blood pH 7.39 (7.35-7.45) Arterial Blood pCO2 at Patient Temp 53 mmHg (35-46) Arterial Blood pO2 at Patient Temp 78 mmHg (65-108) Arterial Blood HCO3 31 mmol/L (21-28) Arterial Blood Base Excess 5 mmol/L (-3-3) FiO2 36/4l Laboratory Tests Test 04/29/21 10:20 04/29/21 10:26 04/29/21 11:52 Prothrombin Time 20.6 SEC (11.7-14.0) Prothromb Time International Ratio 1.8 (0.8-1.1) Hepatitis A IgM Antibody Nonreactive (Nonreactive) Hepatitis B Surface Antigen Nonreactive (Nonreactive) Hepatitis B Core IgM Antibody Nonreactive (Nonreactive) Hepatitis C IgG Antibody Nonreactive (Nonreactive) O2 Saturation 94 % (92-99) Arterial Blood pH 7.39 (7.35-7.45) Arterial Blood pCO2 at Patient Temp 53 mmHg (35-46) Arterial Blood pO2 at Patient Temp 78 mmHg (65-108) Arterial Blood HCO3 31 mmol/L (21-28) Arterial Blood Base Excess 5 mmol/L (-3-3) FiO2 36/4l Medications Active Scripts Medications Dose Route/Sig Max Daily Dose Days Date Category Dose Instructions Sertraline Hcl 50 Mg Tablet 50 Mg PO DAILY 04/28/21 Reported Xarelto (Rivaroxaban) 20 Mg Tablet 1 Tab PO DAILY 30 04/28/21 Reported with food Losartan Potassium 50 Mg Tablet 25 Mg PO DAILY 04/28/21 Reported Atorvastatin Calcium 20 Mg Tablet 20 Mg PO HS 04/28/21 Reported Spironolactone 50 Mg Tablet 1 Tab PO DAILY 04/28/21 Reported Furosemide 80 Mg Tablet 80 Mg PO DAILY 04/28/21 Reported Ferrous Sulfate 325 Mg Tablet 1 Tab PO PRN Q48HR PRN 04/28/21 Reported Metoprolol Succinate ( Xl ) (Metoprolol Succinate) 25 Mg Tab.er.24h 25 Mg PO DAILY 01/21/21 Rx Impression . Full consult dictated Acute on chronic heart failure Acute on chronic cor pulmonale COPD Tobacco dependent Discontinue steroids Diuresis ZOLTAN HUGGINS MD Apr 29, 2021 13:17
--- NOTE | 2021-04-29 13:42 | PDOC ---
PROGRESS NOTES Date of Service: DATE: 04/29/21 TIME: 13:41 Subjective Subjective No new issues/complaints Objective Objective Vital Signs Date Time Temp Pulse Resp B/P (MAP) Pulse Ox O2 Delivery O2 Flow Rate FiO2 04/29/21 11:46 96 Nasal Cannula 4.0 04/29/21 11:00 97.8 88 19 126/60 (82) 97.8 Intake and Output 04/29/21 07:00 Intake Total 1680 ml Output Total 4950 ml Balance -3270 ml Intake Oral 1680 ml Output Urine Total 4950 ml # Voids 1 # Bowel Movements 1 Physical Exam Abdomen: Other (ascites ) Heart: Regular rate (SR/St) Extremities: Other (2-3+ bilateral LE edema up to thigh level ) General: Alert, Oriented X3, Cooperative, No acute distress HEENT: Atraumatic Lungs: Other (crackles ) Neuro: Normal speech, Sensation intact Psych/Mental Status: Mental status NL, Mood NL Skin: No rashes, No breakdown Assessment Assessment 1. Acute respiratory failure secondary to ac on chr systolic CHF 2. Acute on chronic systolic CHF: better compensated with diuresis 3. Nonischemic cardiomyopathy ; recent echo with LVEF 20-25% - consider AICD implantation as outpatient 4. CAD; recent cath with moderate nonobstructive disease as noted above. 5. Mild troponin elevation; peak 0.13. Type II, probably demand ischemia 6. PAFIB/flutter; s/p recent cardiac ablation, maintaining SR 7. Accelerated hypertension; labile but better controlled 8. Hyperlipidemia 9. Diabetes, II: per IM 10. CAROL 11. PAD; recent arterial duplex with concerns for right common iliac artery occlusion. Was evaluated by vascular at that time. No critical limb ischemia present 12. Cirrhosis; KAMARA vs alcohol related given h/o heavy use 13. Tobaccoism 14. Substance abuse; UDS + for methamphetamines 15. Suspected noncompliance Plan Plan of Care Problems Medical Problems: (1) Amphetamine abuse Status: Acute (2) Anasarca Status: Acute (3) CHF (congestive heart failure) Status: Acute Comment Review of Relevant I have reviewed the following items villa (where applicable) has been applied. Labs Laboratory Tests Test 04/29/21 10:20 04/29/21 10:26 04/29/21 11:52 Prothrombin Time 20.6 SEC (11.7-14.0) Prothromb Time International Ratio 1.8 (0.8-1.1) Hepatitis A IgM Antibody Nonreactive (Nonreactive) Hepatitis B Surface Antigen Nonreactive (Nonreactive) Hepatitis B Core IgM Antibody Nonreactive (Nonreactive) Hepatitis C IgG Antibody Nonreactive (Nonreactive) O2 Saturation 94 % (92-99) Arterial Blood pH 7.39 (7.35-7.45) Arterial Blood pCO2 at Patient Temp 53 mmHg (35-46) Arterial Blood pO2 at Patient Temp 78 mmHg (65-108) Arterial Blood HCO3 31 mmol/L (21-28) Arterial Blood Base Excess 5 mmol/L (-3-3) FiO2 36/4l Medications Current Medications Albuterol/ Ipratropium (Duoneb) 3 ml Q4HRS W/A NEB Last administered on 04/29/21at 11:43; Start 04/29/21 at 10:00 Atorvastatin Calcium (Lipitor) 20 mg HS PO Last administered on 04/28/21at 20:09; Start 04/28/21 at 21:00 Famotidine (Pepcid) 20 mg QHS PO ; Start 04/29/21 at 21:00 Furosemide (Lasix) 40 mg [id number] IVP Last administered on 04/29/21at 13:12; Start 04/28/21 at 14:00 Losartan Potassium (Cozaar) 25 mg DAILY PO Last administered on 04/29/21at 08:20; Start 04/29/21 at 09:00 Methylprednisolone Sodium Succinate (SOLU-Medrol 40MG VIAL) 40 mg Q12HR IV Last administered on 04/29/21at 10:23; Start 04/29/21 at 10:00 Rivaroxaban (Xarelto) 20 mg DAILYWSUP PO Last administered on 04/28/21at 18:08; Start 04/28/21 at 17:00 Sertraline HCl (Zoloft) 50 mg DAILY PO Last administered on 04/29/21at 08:18; Start 04/29/21 at 09:00 Spironolactone (Aldactone) 50 mg DAILY PO Last administered on 04/29/21at 08:19; Start 04/29/21 at 09:00 Vitals/I & O Vital Sign - Last 24 Hours 04/28/21 04/28/21 04/28/21 04/28/21 14:05 14:34 14:36 19:50 Temp 98.5 99.0 98.5 99.0 Pulse 103 103 103 91 Resp 18 22 B/P (MAP) 177/89 (118) 177/89 177/89 143/67 (92) Pulse Ox 96 99 O2 Delivery Nasal Cannula Nasal Cannula O2 Flow Rate 2.0 2.0 04/28/21 04/28/21 04/29/21 04/29/21 20:00 22:50 02:31 07:00 Temp 97.8 98.3 98.1 97.8 98.3 98.1 Pulse 98 82 90 Resp 21 B/P (MAP) 132/65 (87) 123/75 (91) 169/89 (115) Pulse Ox 100 100 91 O2 Delivery Nasal Cannula Nasal Cannula Nasal Cannula Nasal Cannula O2 Flow Rate 2.0 2.0 2.0 3.0 04/29/21 04/29/21 04/29/21 04/29/21 08:00 08:20 08:20 11:00 Temp 97.8 97.8 Pulse 89 90 88 Resp 19 B/P (MAP) 169/89 169/89 126/60 (82) Pulse Ox 96 O2 Delivery Nasal Cannula Room Air O2 Flow Rate 4.0 04/29/21 11:46 Pulse Ox 96 O2 Delivery Nasal Cannula O2 Flow Rate 4.0 Intake and Output 04/28/21 04/28/21 04/29/21 15:00 23:00 07:00 Intake Total 400 ml 580 ml 700 ml Output Total 2150 ml 2800 ml Balance -1750 ml -2220 ml 700 ml YO MEAD MD Apr 29, 2021 13:41
--- NOTE | 2021-04-29 13:48 | CONS ---
DATE OF CONSULTATION: 04/29/2021 ATTENDING PHYSICIAN: Esthela Hinton DO CONSULTING PHYSICIAN: Alexis Clifton MD REASON FOR CONSULTATION: The patient is seen in pulmonary consultation at the request of Dr. Hinton for increasing shortness of air, abnormal chest x-ray. HISTORY OF PRESENT ILLNESS: The patient is a 60-year-old that normally goes to the Cardiology Clinic at [facility]. He presented with increasing shortness of breath, fluid retention and increasing lower extremity edema. The patient states that he normally takes a water pill. He has been compliant with his water pill. He has been watching his salt intake, presented with increasing shortness of breath, cough, mostly nonproductive. He continues to smoke. He does not wear oxygen at home. He denies any use of drugs, but his urine drug screen was positive for methamphetamine. He denies alcohol intake. He states that he used to smoke in the past. He has been vaccinated with 1 dose of COVID vaccine. PAST MEDICAL HISTORY: Chronic atrial fibrillation, he has had previous ablation, coronary artery disease, chronic hypertension, chronic heart failure, hyperlipidemia, COPD, tobacco dependence, cirrhosis, diabetes, drug use. PAST SURGICAL HISTORY: No major surgeries. Review of systems; he has had a transechocardiogram in 11/2020 revealing EF of 35%. His right ventricle was mildly dilated. He had a heart catheterization on 11/11/2020 revealing moderate obstructive coronary artery disease involving the LAD, moderate severe coronary artery disease involving the circumflex artery. He had increasing left and right-sided filling pressures at the time. SOCIAL HISTORY: Prior history of alcoholism. The patient denies any current use of drugs. His urine drug screen came back positive. He continues to smoke. ALLERGIES: IBUPROFEN. FAMILY HISTORY: Noncontributory. REVIEW OF SYSTEMS: As indicated above, otherwise a 10-point system was reviewed and negative. PHYSICAL EXAMINATION: VITAL SIGNS: Currently requiring anywhere between 2-4 liters of oxygen supplementation. He has been afebrile. No respiratory distress. HEENT AND NECK: Jugular venous distention was elevated. CHEST: Full expansion. LUNGS: Poor flow with no wheezes. CARDIOVASCULAR: Regular rate and rhythm with S1, S2, no S3. ABDOMEN: Soft. EXTREMITIES: 1+ edema. NEUROLOGIC: The patient was awake, alert, following commands. A detailed neuro exam was not performed. LABORATORY DATA: White count was 6.6, hemoglobin and hematocrit were noted. Arterial blood gas; pH of 7.39, PaCO2 of 53, pO2 of 78 on 4 liters. Electrolytes were noted. Creatinine was elevated. Troponin was elevated. Serology for hepatitis B was negative for [id number] was negative. Urine drug screen was positive for methamphetamine and amphetamines. A chest x-ray as indicated above. IMPRESSION: 1. Acute hypoxemic respiratory failure secondary to acute on chronic diastolic and systolic heart failure. 2. Acute on chronic cor pulmonale. 3. Tobacco dependent. 4. Chronic obstructive pulmonary disease, unknown FEV1. 5. Coronary artery disease as described above. 6. Elevated troponin, suspect non-ST segment elevation myocardial infarction. 7. Paroxysmal atrial fibrillation with recent ablation. 8. Cirrhosis. 9. Positive urine drug screen. PLAN: 1. Recommend continue diuresis per cardiology. Monitor renal function. 2. No need for steroids or antibiotics. 3. The patient instructed on the importance of discontinuing tobacco and drug use. 4. The patient is instructed on the importance of being compliant with his medications, suspect he was noncompliant as a result, he ended up with decompensation of his heart function. 5. Continue p.r.n. nebulized treatments. 6. No need for antibiotics. 7. Continue Xarelto. JORGE DR: Nevaeh TID: [id number]
[2021-04-29 15:00] VITALS: BP 131/76
--- NOTE | 2021-04-29 16:38 | NUR ---
SS following up with discharge planning. SS reviewed pt chart and discussed with pt RN. Pt is currently requiring oxygen at 2-4 liters nasal canula. Pt on IV Lasix. Methamphetamine positive. PAT team referral made for assessment and recommendations. SS will continue to follow for discharge planning.
[2021-04-29] MEDS: RIVAROXABAN 10 MG TABLET. PO SCH (17:46)
[2021-04-29 19:10] VITALS: BP 138/66
[2021-04-29] MEDS: ATORVASTATIN CALCIUM 20 MG TABLET PO SCH (20:44)
[2021-04-29] MEDS: FAMOTIDINE 20 MG TABLET. PO SCH (20:44)
[2021-04-29 23:05] VITALS: BP 111/58
[2021-04-30 02:50] VITALS: BP 121/78
[2021-04-30 05:14] LABS: BASO % 0 % (0-3); EOS % 0 % (0-3); HEMATOCRIT 43.3 % (39.0-53.0); HEMOGLOBIN 14.2 g/dL (13.0-17.5); LYMPH % 8 % (24-48); MEAN CORPUSCULAR HEMOGLOBIN 30 pg (25-35); MEAN CORPUSCULAR HGB CONC 33 g/dL (31-37); MEAN CORPUSCULAR VOLUME 90 fL (79-100); MONO # 0.8 x10^3/uL (0.0-1.1); MONO % 6 % (0-9); NEUT # 11.1 x10^3/uL (1.8-7.7); NEUT % 86 % (31-73); PLATELET COUNT 171 x10^3/uL (140-400); RED BLOOD COUNT 4.81 x10^6/uL (4.30-5.70); RED CELL DISTRIBUTION WIDTH 16.7 % (11.5-14.5); WHITE BLOOD COUNT 12.8 x10^3/uL (4.0-11.0)
[2021-04-30 05:40] LABS: CALCIUM 8.9 mg/dL (8.5-10.1); CREATININE 1.2 mg/dL (0.7-1.3); POTASSIUM 4.1 mmol/L (3.5-5.1)
[2021-04-30 07:00] VITALS: BP 125/71
[2021-04-30] MEDS: IPRATRPIUM/ALBUTEROL 0.5/2.5MG 3 ML NEBU. NEB SCH ×4 (07:35→20:19)
--- NOTE | 2021-04-30 08:23 | RAD ---
EXAM: Abdomen sonogram. HISTORY: Pain.. TECHNIQUE: Sonographic imaging of the abdomen was performed. COMPARISON: CT dated 01/18/2021. FINDINGS: The liver is enlarged. There is coarse hepatic echotexture and hepatic surface nodularity d ue to cirrhosis. No focal hepatic lesion is seen. There is cholelithiasis. There is no convincing cho lecystitis. The common bile duct is normal in caliber. The right kidney is unremarkable. The inferior vena cava is patent. The pancreas is predominantly obscured due to bowel gas. IMPRESSION: 1. Hepatomegaly and hepatic cirrhosis. There is suspected superimposed steatosis. No focal hepatic le [place] is seen sonographically. 2. Cholelithiasis. 3. Obscured midline structures due to bowel gas. Electronically signed by: Bhavana Tate MD (04/30/2021 8:21 AM) [id number]
[2021-04-30] MEDS: ASPIRIN ENTERIC COATED 81 MG TABLET.DR. PO SCH (08:40)
[2021-04-30] MEDS: METOPROLOL SUCC 24HR ER 25 MG TAB.ER.24H. PO SCH (08:41)
[2021-04-30] MEDS: SPIRONOLACTONE 25 MG TABLET PO SCH (08:41)
[2021-04-30] MEDS: LOSARTAN POTASSIUM 50 MG TABLET. PO SCH (08:41)
[2021-04-30] MEDS: FUROSEMIDE 40 MG/4 ML VIAL. IVP SCH ×2 (08:41→15:05)
[2021-04-30] MEDS: SERTRALINE 50 MG TABLET. PO SCH (08:41)
--- NOTE | 2021-04-30 10:01 | PDOC ---
PULMONARY PROGRESS NOTES DATE: 04/30/21 TIME: 10:00 Subjective Patient feels better, less short of air, currently on 5 L Vitals Vital Signs Date Time Temp Pulse Resp B/P (MAP) Pulse Ox O2 Delivery O2 Flow Rate FiO2 04/30/21 08:41 88 121/78 04/30/21 08:00 Nasal Cannula 4.0 04/30/21 07:35 96 04/30/21 07:00 98.3 16 98.3 ROS: No Nausea, No Abdominal Pain, No Increase Cough Lungs: Crackles Cardiovascular: S1 Abdomen: Soft Neuro Exam: Alert Extremities: No Edema Skin: Warm Labs Laboratory Tests Test 04/28/21 10:55 04/29/21 10:20 04/29/21 10:26 04/29/21 11:52 Troponin I Quantitative 0.090 ng/mL (0.000-0.055) Prothrombin Time 20.6 SEC (11.7-14.0) Prothromb Time International Ratio 1.8 (0.8-1.1) Hepatitis A IgM Antibody Nonreactive (Nonreactive) Hepatitis B Surface Antigen Nonreactive (Nonreactive) Hepatitis B Core IgM Antibody Nonreactive (Nonreactive) Hepatitis C IgG Antibody Nonreactive (Nonreactive) O2 Saturation 94 % (92-99) Arterial Blood pH 7.39 (7.35-7.45) Arterial Blood pCO2 at Patient Temp 53 mmHg (35-46) Arterial Blood pO2 at Patient Temp 78 mmHg (65-108) Arterial Blood HCO3 31 mmol/L (21-28) Arterial Blood Base Excess 5 mmol/L (-3-3) FiO2 36/4l Test 04/30/21 04:20 White Blood Count 12.8 x10^3/uL (4.0-11.0) Red Blood Count 4.81 x10^6/uL (4.30-5.70) Hemoglobin 14.2 g/dL (13.0-17.5) Hematocrit 43.3 % (39.0-53.0) Mean Corpuscular Volume 90 fL (79-100) Mean Corpuscular Hemoglobin 30 pg (25-35) Mean Corpuscular Hemoglobin Concent 33 g/dL (31-37) Red Cell Distribution Width 16.7 % (11.5-14.5) Platelet Count 171 x10^3/uL (140-400) Neutrophils (%) (Auto) 86 % (31-73) Lymphocytes (%) (Auto) 8 % (24-48) Monocytes (%) (Auto) 6 % (0-9) Eosinophils (%) (Auto) 0 % (0-3) Basophils (%) (Auto) 0 % (0-3) Neutrophils # (Auto) 11.1 x10^3/uL (1.8-7.7) Lymphocytes # (Auto) 1.0 x10^3/uL (1.0-4.8) Monocytes # (Auto) 0.8 x10^3/uL (0.0-1.1) Eosinophils # (Auto) 0.0 x10^3/uL (0.0-0.7) Basophils # (Auto) 0.0 x10^3/uL (0.0-0.2) Sodium Level 140 mmol/L (136-145) Potassium Level 4.1 mmol/L (3.5-5.1) Chloride Level 100 mmol/L (98-107) Carbon Dioxide Level 33 mmol/L (21-32) Anion Gap 7 (6-14) Blood Urea Nitrogen 21 mg/dL (8-26) Creatinine 1.2 mg/dL (0.7-1.3) Estimated GFR (Cockcroft-Gault) 62.0 Glucose Level 98 mg/dL (70-99) Calcium Level 8.9 mg/dL (8.5-10.1) Laboratory Tests Test 04/29/21 10:20 04/29/21 10:26 04/29/21 11:52 04/30/21 04:20 Prothrombin Time 20.6 SEC (11.7-14.0) Prothromb Time International Ratio 1.8 (0.8-1.1) Hepatitis A IgM Antibody Nonreactive (Nonreactive) Hepatitis B Surface Antigen Nonreactive (Nonreactive) Hepatitis B Core IgM Antibody Nonreactive (Nonreactive) Hepatitis C IgG Antibody Nonreactive (Nonreactive) O2 Saturation 94 % (92-99) Arterial Blood pH 7.39 (7.35-7.45) Arterial Blood pCO2 at Patient Temp 53 mmHg (35-46) Arterial Blood pO2 at Patient Temp 78 mmHg (65-108) Arterial Blood HCO3 31 mmol/L (21-28) Arterial Blood Base Excess 5 mmol/L (-3-3) FiO2 36/4l White Blood Count 12.8 x10^3/uL (4.0-11.0) Red Blood Count 4.81 x10^6/uL (4.30-5.70) Hemoglobin 14.2 g/dL (13.0-17.5) Hematocrit 43.3 % (39.0-53.0) Mean Corpuscular Volume 90 fL (79-100) Mean Corpuscular Hemoglobin 30 pg (25-35) Mean Corpuscular Hemoglobin Concent 33 g/dL (31-37) Red Cell Distribution Width 16.7 % (11.5-14.5) Platelet Count 171 x10^3/uL (140-400) Neutrophils (%) (Auto) 86 % (31-73) Lymphocytes (%) (Auto) 8 % (24-48) Monocytes (%) (Auto) 6 % (0-9) Eosinophils (%) (Auto) 0 % (0-3) Basophils (%) (Auto) 0 % (0-3) Neutrophils # (Auto) 11.1 x10^3/uL (1.8-7.7) Lymphocytes # (Auto) 1.0 x10^3/uL (1.0-4.8) Monocytes # (Auto) 0.8 x10^3/uL (0.0-1.1) Eosinophils # (Auto) 0.0 x10^3/uL (0.0-0.7) Basophils # (Auto) 0.0 x10^3/uL (0.0-0.2) Sodium Level 140 mmol/L (136-145) Potassium Level 4.1 mmol/L (3.5-5.1) Chloride Level 100 mmol/L (98-107) Carbon Dioxide Level 33 mmol/L (21-32) Anion Gap 7 (6-14) Blood Urea Nitrogen 21 mg/dL (8-26) Creatinine 1.2 mg/dL (0.7-1.3) Estimated GFR (Cockcroft-Gault) 62.0 Glucose Level 98 mg/dL (70-99) Calcium Level 8.9 mg/dL (8.5-10.1) Medications Active Scripts Medications Dose Route/Sig Max Daily Dose Days Date Category Dose Instructions Sertraline Hcl 50 Mg Tablet 50 Mg PO DAILY 04/28/21 Reported Xarelto (Rivaroxaban) 20 Mg Tablet 1 Tab PO DAILY 30 04/28/21 Reported with food Losartan Potassium 50 Mg Tablet 25 Mg PO DAILY 04/28/21 Reported Atorvastatin Calcium 20 Mg Tablet 20 Mg PO HS 04/28/21 Reported Spironolactone 50 Mg Tablet 1 Tab PO DAILY 04/28/21 Reported Furosemide 80 Mg Tablet 80 Mg PO DAILY 04/28/21 Reported Ferrous Sulfate 325 Mg Tablet 1 Tab PO PRN Q48HR PRN 04/28/21 Reported Metoprolol Succinate ( Xl ) (Metoprolol Succinate) 25 Mg Tab.er.24h 25 Mg PO DAILY 01/21/21 Rx Impression . IMPRESSION: 1. Acute hypoxemic respiratory failure secondary to acute on chronic diastolic and systolic heart failure. 2. Acute on chronic cor pulmonale. 3. Tobacco dependent. 4. Chronic obstructive pulmonary disease, unknown FEV1. 5. Coronary artery disease as described above. 6. Elevated troponin, suspect non-ST segment elevation myocardial infarction. 7. Paroxysmal atrial fibrillation with recent ablation. 8. Cirrhosis. 9. Positive urine drug screen. Plan . Updated 04/30 Continue to diuresis monitor renal function Continue oxygen supplementation Follow cardiology input 04/29 PLAN: 1. Recommend continue diuresis per cardiology. Monitor renal function. 2. No need for steroids or antibiotics. 3. The patient instructed on the importance of discontinuing tobacco and drug use. 4. The patient is instructed on the importance of being compliant with his medications, suspect he was noncompliant as a result, he ended up with decompensation of his heart function. 5. Continue p.r.n. nebulized treatments. 6. No need for antibiotics. 7. Continue Xarelto. ZOLTAN HUGGINS MD Apr 30, 2021 10:01
[2021-04-30 11:00] VITALS: BP 113/61
--- NOTE | 2021-04-30 11:45 | PDOC ---
[employer] PROGRESS NOTE Date of Service DOS: DATE: 04/30/21 TIME: 11:45 Chief Complaint Chief Complaint Acute on chronic systolic and diastolic heart failure Respiratory Failure Cirrhosis CAD (s/p stents) PAD COPD Non-ischemic cardiomyopathy diabetes hypertension Paroxysmal A. Fib/Flutter (s/p ablation) HLP Hx myocardial infarction Hx seizures Hx CAROL left arm surgery bilateral carpal tunnel surgery tobacco abuse amphetamine abuse Suspected non-compliance History of Present Illness History of Present Illness 04/30 Pt seen and examined No acute overnight events Patient resting in bed comfortably at time of exam Satting ~96 on 4L NC Chart reviewed DWRN and SW 04/29 Patient seen and examined at bedside No acute overnight events Patient satting ~ 91 on 4L by NC Discussed patient's tobacco use, cessation encouraged Discussed pt's liver, cessation of any hepatotoxic drugs and EtOH encouraged Charts reviewed Discussed with RN and SW Vitals/I&O Vitals/I&O: Vital Signs Date Time Temp Pulse Resp B/P (MAP) Pulse Ox O2 Delivery O2 Flow Rate FiO2 04/30/21 11:34 96 Nasal Cannula 4.0 04/30/21 08:41 88 121/78 04/30/21 07:00 98.3 16 98.3 I & O 04/29/21 04/29/21 04/30/21 15:00 23:00 07:00 Intake Total 600 ml 300 ml 480 ml Output Total 1150 ml 350 ml 450 ml Balance -550 ml -50 ml 30 ml Physical Exam General: No acute distress Heart: Regular rate (SR/St) Lungs: Crackles Abdomen: Other (ascites ) Extremities: Other (2-3+ bilateral LE edema up to thigh level ) Skin: No rashes, No breakdown Labs Labs: Laboratory Tests Test 04/29/21 11:52 04/30/21 04:20 O2 Saturation 94 % (92-99) Arterial Blood pH 7.39 (7.35-7.45) Arterial Blood pCO2 at Patient Temp 53 mmHg (35-46) Arterial Blood pO2 at Patient Temp 78 mmHg (65-108) Arterial Blood HCO3 31 mmol/L (21-28) Arterial Blood Base Excess 5 mmol/L (-3-3) FiO2 36/4l White Blood Count 12.8 x10^3/uL (4.0-11.0) Red Blood Count 4.81 x10^6/uL (4.30-5.70) Hemoglobin 14.2 g/dL (13.0-17.5) Hematocrit 43.3 % (39.0-53.0) Mean Corpuscular Volume 90 fL (79-100) Mean Corpuscular Hemoglobin 30 pg (25-35) Mean Corpuscular Hemoglobin Concent 33 g/dL (31-37) Red Cell Distribution Width 16.7 % (11.5-14.5) Platelet Count 171 x10^3/uL (140-400) Neutrophils (%) (Auto) 86 % (31-73) Lymphocytes (%) (Auto) 8 % (24-48) Monocytes (%) (Auto) 6 % (0-9) Eosinophils (%) (Auto) 0 % (0-3) Basophils (%) (Auto) 0 % (0-3) Neutrophils # (Auto) 11.1 x10^3/uL (1.8-7.7) Lymphocytes # (Auto) 1.0 x10^3/uL (1.0-4.8) Monocytes # (Auto) 0.8 x10^3/uL (0.0-1.1) Eosinophils # (Auto) 0.0 x10^3/uL (0.0-0.7) Basophils # (Auto) 0.0 x10^3/uL (0.0-0.2) Sodium Level 140 mmol/L (136-145) Potassium Level 4.1 mmol/L (3.5-5.1) Chloride Level 100 mmol/L (98-107) Carbon Dioxide Level 33 mmol/L (21-32) Anion Gap 7 (6-14) Blood Urea Nitrogen 21 mg/dL (8-26) Creatinine 1.2 mg/dL (0.7-1.3) Estimated GFR (Cockcroft-Gault) 62.0 Glucose Level 98 mg/dL (70-99) Calcium Level 8.9 mg/dL (8.5-10.1) Review of Systems Review of Systems: ROS negative Assessment and Plan Assessmemt and Plan Problems Medical Problems: (1) Amphetamine abuse Status: Acute (2) Anasarca Status: Acute (3) CHF (congestive heart failure) Status: Acute Acute on chronic systolic and diastolic heart failure Respiratory Failure Cirrhosis CAD (s/p stents) PAD COPD Non-ischemic cardiomyopathy diabetes hypertension Paroxysmal A. Fib/Flutter (s/p ablation) HLP Hx myocardial infarction Hx seizures Hx CAROL left arm surgery bilateral carpal tunnel surgery tobacco abuse amphetamine abuse Chronic anticoagulation (Xarelto) Suspected non-compliance Plan Cardiology has been following, input appreciated Cardiology considering outpatient AICD (last echo LVEF 20-25%) Consult placed to pulmonology and GI, inputs appreciated Discontinued steroids, per pulmonology Continue monitoring on telemetry Continue diuresis Continue DuoNebs Continue his home Xarelto if cardiology agrees Titrate O2 PRN Trend labs Restarted home meds as indicated Full Code Discharge Disposition Pending Comment Review of Relevant I have reviewed the following items villa (where applicable) has been applied. Medications: Current Medications Medications (Trade) Dose Ordered Sig/Zo Route PRN Reason Start Time Stop Time Status Last Admin Dose Admin Famotidine (Pepcid) 20 mg QHS PO 04/29/21 21:00 04/29/21 20:44 Justifications for Admission Other Justification SUPRIYA AGOSTO III DO Apr 30, 2021 11:45
--- NOTE | 2021-04-30 12:04 | PDOC ---
AIDA BARBOSA DEPUTY SHERIFF BUILDING GUARD 04/30/21 1204: CARDIO Progress Notes Date and Time Date of Service 04/30/21 Time of Evaluation 1200 Subjective Subjective: No Chest Pain, No Palpitations, No Dizziness, Other (breathing and edema improved ) Vitals Vitals Vital Signs Date Time Temp Pulse Resp B/P (MAP) Pulse Ox O2 Delivery O2 Flow Rate FiO2 04/30/21 11:34 96 Nasal Cannula 4.0 04/30/21 11:00 98.0 73 16 113/61 (78) 98.0 Weight Weight [ ] Input and Output Intake and Output Intake and Output 04/30/21 07:00 Intake Total 1380 ml Output Total 1950 ml Balance -570 ml Intake Oral 1380 ml Output Urine Total 1950 ml Laboratory Labs Laboratory Tests Test 04/30/21 04:20 White Blood Count 12.8 x10^3/uL (4.0-11.0) Red Blood Count 4.81 x10^6/uL (4.30-5.70) Hemoglobin 14.2 g/dL (13.0-17.5) Hematocrit 43.3 % (39.0-53.0) Mean Corpuscular Volume 90 fL (79-100) Mean Corpuscular Hemoglobin 30 pg (25-35) Mean Corpuscular Hemoglobin Concent 33 g/dL (31-37) Red Cell Distribution Width 16.7 % (11.5-14.5) Platelet Count 171 x10^3/uL (140-400) Neutrophils (%) (Auto) 86 % (31-73) Lymphocytes (%) (Auto) 8 % (24-48) Monocytes (%) (Auto) 6 % (0-9) Eosinophils (%) (Auto) 0 % (0-3) Basophils (%) (Auto) 0 % (0-3) Neutrophils # (Auto) 11.1 x10^3/uL (1.8-7.7) Lymphocytes # (Auto) 1.0 x10^3/uL (1.0-4.8) Monocytes # (Auto) 0.8 x10^3/uL (0.0-1.1) Eosinophils # (Auto) 0.0 x10^3/uL (0.0-0.7) Basophils # (Auto) 0.0 x10^3/uL (0.0-0.2) Sodium Level 140 mmol/L (136-145) Potassium Level 4.1 mmol/L (3.5-5.1) Chloride Level 100 mmol/L (98-107) Carbon Dioxide Level 33 mmol/L (21-32) Anion Gap 7 (6-14) Blood Urea Nitrogen 21 mg/dL (8-26) Creatinine 1.2 mg/dL (0.7-1.3) Estimated GFR (Cockcroft-Gault) 62.0 Glucose Level 98 mg/dL (70-99) Calcium Level 8.9 mg/dL (8.5-10.1) Physical Exam HEENT: Neck Supple W Full Motion Chest: Symmetric LUNGS: Clear to Auscultation Heart: RRR Abdomen: Soft N/T Extremities: Other (1-2+ bilateral LE edema ) Neurology: alert, oriented, follow commands Assessment Assessment 1. Acute respiratory failure secondary to a/c CHF 2. Acute on chronic systolic CHF 3. Nonischemic cardiomyopathy ; recent echo with LVEF 20-25% 4. CAD; recent cath with moderate nonobstructive disease 5. Mild troponin elevation; peak 0.13. Type II, demand ischemia 6. PAFIB/flutter; s/p recent cardiac ablation at by Dr. Faustin as noted vicenta geiger. Presently SR 7. Accelerated hypertension; now controlled with resumptions of home mesd 8. Hyperlipidemia 9. Diabetes, II 10. CAROL; improved 11. PAD; recent arterial duplex with concerns for right common iliac artery occlusion. Was evaluated by vascular at that time. No critical limb ischemia present 12. Cirrhosis; KAMARA vs alcohol related given h/o heavy use 13. Tobaccoism 14. Substance abuse; UDS + for methamphetamines 15. Suspected noncompliance Recommendations Ongoing diuresis with monitoring or renal function 2000cc FR, 2Gm Na diet Monitor daily weight, I and O's Secondary prevention measures Xarelto for stroke prophylaxis No statin with liver disease Supportive care Consider for outpatient ICD therapies if compliance can be established Reinforced importance of compliance and cessation from recreational drugs. Justicifation of Admission Dx: Justifications for Admission: Justification of Admission Dx: Yes Cellulitis: Cellulitis YO MEAD MD 04/30/212050: CARDIO Progress Notes Assessment Assessment Patient seen and examined. Agree with KIDS ACTIVITIES COACH's assessment and plan as stated above. AIDA BARBOSA APRN Apr 30, 2021 12:04 YO MEAD MD Apr 30, 2021 20:51
--- NOTE | 2021-04-30 12:08 | PDOC ---
Date of Service: DATE: 04/30/21 TIME: 11:58 Subjective: Subjective: No GI problems. Feeling better and would like ice cream. Objective: Vital Signs: Vital Signs Date Time Temp Pulse Resp B/P (MAP) Pulse Ox O2 Delivery O2 Flow Rate FiO2 04/30/21 11:34 96 Nasal Cannula 4.0 04/30/21 11:00 98.0 73 16 113/61 (78) 98.0 Labs: Laboratory Tests Test 04/30/21 04:20 White Blood Count 12.8 x10^3/uL Red Blood Count 4.81 x10^6/uL Hemoglobin 14.2 g/dL Hematocrit 43.3 % Mean Corpuscular Volume 90 fL Mean Corpuscular Hemoglobin 30 pg Mean Corpuscular Hemoglobin Concent 33 g/dL Red Cell Distribution Width 16.7 % Platelet Count 171 x10^3/uL Neutrophils (%) (Auto) 86 % Lymphocytes (%) (Auto) 8 % Monocytes (%) (Auto) 6 % Eosinophils (%) (Auto) 0 % Basophils (%) (Auto) 0 % Neutrophils # (Auto) 11.1 x10^3/uL Lymphocytes # (Auto) 1.0 x10^3/uL Monocytes # (Auto) 0.8 x10^3/uL Eosinophils # (Auto) 0.0 x10^3/uL Basophils # (Auto) 0.0 x10^3/uL Sodium Level 140 mmol/L Potassium Level 4.1 mmol/L Chloride Level 100 mmol/L Carbon Dioxide Level 33 mmol/L Anion Gap 7 Blood Urea Nitrogen 21 mg/dL Creatinine 1.2 mg/dL Estimated GFR (Cockcroft-Gault) 62.0 Glucose Level 98 mg/dL Calcium Level 8.9 mg/dL Imaging: Abd US 04/30 IMPRESSION: 1. Hepatomegaly and hepatic cirrhosis. There is suspected superimposed steatosis. No focal hepatic lesion is seen sonographically. 2. Cholelithiasis. 3. Obscured midline structures due to bowel gas. PE: GEN: NAD LUNGS: CTAB HEART: RRR ABD: NABS, S/ND/NT NEURO/PSYCH: A & O 3 A/P: Resp failure w/ CHF/NICM - on Lasix and spironolactone Cirrhosis - suspect due to alcohol, viral Hep panel negative +meth -- Continue per cardiology. Recheck of labs ordered per primary for tomorrow. Continue alcohol avoidance. Stop meth. Can follow w/ GI/hepatology (has apparently been to [facility]?) as outpt. Also needs screening colonoscopy. Justicifation of Admission Dx: Justifications for Admission: Justification of Admission Dx: Yes Cellulitis: Cellulitis ELEAZAR NIELSON Apr 30, 2021 12:08
[2021-04-30 15:00] VITALS: BP 115/59
--- NOTE | 2021-04-30 15:21 | NUR ---
SS following up with discharge planning. SS reviewed pt chart and discussed with pt RN. Pt is currently requiring oxygen at four liters nasal canula. Pt on IV Lasix. Cardiology and GI following. PAT team met with pt and provided referral to [facility] for outpatient treatment. Resources provided. SS will continue to follow for discharge planning.
[2021-04-30] MEDS: RIVAROXABAN 10 MG TABLET. PO SCH (17:39)
[2021-04-30 19:58] VITALS: BP 123/62
[2021-04-30] MEDS: FAMOTIDINE 20 MG TABLET. PO SCH (20:46)
[2021-04-30] MEDS: ATORVASTATIN CALCIUM 20 MG TABLET PO SCH (20:46)
[2021-04-30] MEDS ORDERED: traMADol 50 MG TABLET PO PRN (21:30)
[2021-04-30] MEDS ORDERED: BENZONATATE 100 MG CAPSULE. PO PRN (21:30)
[2021-04-30 23:00] VITALS: BP 131/75
[2021-05-01 03:04] VITALS: BP 118/58
[2021-05-01 07:00] VITALS: BP 122/72
[2021-05-01] MEDS: IPRATRPIUM/ALBUTEROL 0.5/2.5MG 3 ML NEBU. NEB SCH ×6 (07:33→20:00)
[2021-05-01] MEDS: ASPIRIN ENTERIC COATED 81 MG TABLET.DR. PO SCH (08:06)
[2021-05-01] MEDS: METOPROLOL SUCC 24HR ER 25 MG TAB.ER.24H. PO SCH (08:07)
[2021-05-01] MEDS: LOSARTAN POTASSIUM 50 MG TABLET. PO SCH (08:08)
[2021-05-01] MEDS: SERTRALINE 50 MG TABLET. PO SCH (08:08)
[2021-05-01] MEDS: SPIRONOLACTONE 25 MG TABLET PO SCH (08:09)
[2021-05-01] MEDS: FUROSEMIDE 40 MG/4 ML VIAL. IVP SCH ×2 (08:10→13:56)
[2021-05-01 08:14] LABS: BASO # 0.1 x10^3/uL (0.0-0.2); BASO % 1 % (0-3); EOS # 0.1 x10^3/uL (0.0-0.7); EOS % 1 % (0-3); HEMATOCRIT 44.5 % (39.0-53.0); HEMOGLOBIN 14.6 g/dL (13.0-17.5); LYMPH # 1.8 x10^3/uL (1.0-4.8); LYMPH % 20 % (24-48); MEAN CORPUSCULAR HEMOGLOBIN 30 pg (25-35); MEAN CORPUSCULAR HGB CONC 33 g/dL (31-37); MEAN CORPUSCULAR VOLUME 91 fL (79-100); MONO # 0.6 x10^3/uL (0.0-1.1); MONO % 7 % (0-9); NEUT # 6.3 x10^3/uL (1.8-7.7); NEUT % 71 % (31-73); PLATELET COUNT 189 x10^3/uL (140-400); RED BLOOD COUNT 4.92 x10^6/uL (4.30-5.70); RED CELL DISTRIBUTION WIDTH 17.3 % (11.5-14.5); WHITE BLOOD COUNT 8.8 x10^3/uL (4.0-11.0)
[2021-05-01 08:28] LABS: PROTHROMBIN TIME PATIENT 22.5 SEC (11.7-14.0)
[2021-05-01 08:45] LABS: ALBUMIN 3.6 g/dL (3.4-5.0); CALCIUM 8.8 mg/dL (8.5-10.1); CREATININE 1.2 mg/dL (0.7-1.3); DIRECT BILIRUBIN 0.3 mg/dL (0.0-0.2); POTASSIUM 3.6 mmol/L (3.5-5.1); TOTAL BILIRUBIN 0.6 mg/dL (0.2-1.0); TOTAL PROTEIN 7.8 g/dL (6.4-8.2)
--- NOTE | 2021-05-01 09:26 | PDOC ---
PULMONARY PROGRESS NOTES DATE: 05/01/21 TIME: 09:26 Subjective No new symptoms, continue shortness of breath mostly with exertion Vitals Vital Signs Date Time Temp Pulse Resp B/P (MAP) Pulse Ox O2 Delivery O2 Flow Rate FiO2 05/01/21 08:08 75 122/72 05/01/21 07:34 97 Nasal Cannula 2.0 05/01/21 03:04 97.7 24 97.7 ROS: No Nausea, No Abdominal Pain, No Increase Cough Lungs: Crackles Cardiovascular: S1 Abdomen: Soft Neuro Exam: Alert Extremities: No Edema Skin: Warm Labs Laboratory Tests Test 04/29/21 10:20 04/29/21 10:26 04/29/21 11:52 04/30/21 04:20 Prothrombin Time 20.6 SEC (11.7-14.0) Prothromb Time International Ratio 1.8 (0.8-1.1) Hepatitis A IgM Antibody Nonreactive (Nonreactive) Hepatitis B Surface Antigen Nonreactive (Nonreactive) Hepatitis B Core IgM Antibody Nonreactive (Nonreactive) Hepatitis C IgG Antibody Nonreactive (Nonreactive) O2 Saturation 94 % (92-99) Arterial Blood pH 7.39 (7.35-7.45) Arterial Blood pCO2 at Patient Temp 53 mmHg (35-46) Arterial Blood pO2 at Patient Temp 78 mmHg (65-108) Arterial Blood HCO3 31 mmol/L (21-28) Arterial Blood Base Excess 5 mmol/L (-3-3) FiO2 36/4l White Blood Count 12.8 x10^3/uL (4.0-11.0) Red Blood Count 4.81 x10^6/uL (4.30-5.70) Hemoglobin 14.2 g/dL (13.0-17.5) Hematocrit 43.3 % (39.0-53.0) Mean Corpuscular Volume 90 fL (79-100) Mean Corpuscular Hemoglobin 30 pg (25-35) Mean Corpuscular Hemoglobin Concent 33 g/dL (31-37) Red Cell Distribution Width 16.7 % (11.5-14.5) Platelet Count 171 x10^3/uL (140-400) Neutrophils (%) (Auto) 86 % (31-73) Lymphocytes (%) (Auto) 8 % (24-48) Monocytes (%) (Auto) 6 % (0-9) Eosinophils (%) (Auto) 0 % (0-3) Basophils (%) (Auto) 0 % (0-3) Neutrophils # (Auto) 11.1 x10^3/uL (1.8-7.7) Lymphocytes # (Auto) 1.0 x10^3/uL (1.0-4.8) Monocytes # (Auto) 0.8 x10^3/uL (0.0-1.1) Eosinophils # (Auto) 0.0 x10^3/uL (0.0-0.7) Basophils # (Auto) 0.0 x10^3/uL (0.0-0.2) Sodium Level 140 mmol/L (136-145) Potassium Level 4.1 mmol/L (3.5-5.1) Chloride Level 100 mmol/L (98-107) Carbon Dioxide Level 33 mmol/L (21-32) Anion Gap 7 (6-14) Blood Urea Nitrogen 21 mg/dL (8-26) Creatinine 1.2 mg/dL (0.7-1.3) Estimated GFR (Cockcroft-Gault) 62.0 Glucose Level 98 mg/dL (70-99) Calcium Level 8.9 mg/dL (8.5-10.1) Test 05/01/21 06:45 White Blood Count 8.8 x10^3/uL (4.0-11.0) Red Blood Count 4.92 x10^6/uL (4.30-5.70) Hemoglobin 14.6 g/dL (13.0-17.5) Hematocrit 44.5 % (39.0-53.0) Mean Corpuscular Volume 91 fL (79-100) Mean Corpuscular Hemoglobin 30 pg (25-35) Mean Corpuscular Hemoglobin Concent 33 g/dL (31-37) Red Cell Distribution Width 17.3 % (11.5-14.5) Platelet Count 189 x10^3/uL (140-400) Neutrophils (%) (Auto) 71 % (31-73) Lymphocytes (%) (Auto) 20 % (24-48) Monocytes (%) (Auto) 7 % (0-9) Eosinophils (%) (Auto) 1 % (0-3) Basophils (%) (Auto) 1 % (0-3) Neutrophils # (Auto) 6.3 x10^3/uL (1.8-7.7) Lymphocytes # (Auto) 1.8 x10^3/uL (1.0-4.8) Monocytes # (Auto) 0.6 x10^3/uL (0.0-1.1) Eosinophils # (Auto) 0.1 x10^3/uL (0.0-0.7) Basophils # (Auto) 0.1 x10^3/uL (0.0-0.2) Prothrombin Time 22.5 SEC (11.7-14.0) Prothromb Time International Ratio 2.0 (0.8-1.1) Sodium Level 142 mmol/L (136-145) Potassium Level 3.6 mmol/L (3.5-5.1) Chloride Level 100 mmol/L (98-107) Carbon Dioxide Level 38 mmol/L (21-32) Anion Gap 4 (6-14) Blood Urea Nitrogen 26 mg/dL (8-26) Creatinine 1.2 mg/dL (0.7-1.3) Estimated GFR (Cockcroft-Gault) 62.0 Glucose Level 94 mg/dL (70-99) Calcium Level 8.8 mg/dL (8.5-10.1) Total Bilirubin 0.6 mg/dL (0.2-1.0) Direct Bilirubin 0.3 mg/dL (0.0-0.2) Aspartate Amino Transf (AST/SGOT) 31 U/L (15-37) Alanine Aminotransferase (ALT/SGPT) 34 U/L (16-63) Alkaline Phosphatase 63 U/L (46-116) Total Protein 7.8 g/dL (6.4-8.2) Albumin 3.6 g/dL (3.4-5.0) Laboratory Tests Test 05/01/21 06:45 White Blood Count 8.8 x10^3/uL (4.0-11.0) Red Blood Count 4.92 x10^6/uL (4.30-5.70) Hemoglobin 14.6 g/dL (13.0-17.5) Hematocrit 44.5 % (39.0-53.0) Mean Corpuscular Volume 91 fL (79-100) Mean Corpuscular Hemoglobin 30 pg (25-35) Mean Corpuscular Hemoglobin Concent 33 g/dL (31-37) Red Cell Distribution Width 17.3 % (11.5-14.5) Platelet Count 189 x10^3/uL (140-400) Neutrophils (%) (Auto) 71 % (31-73) Lymphocytes (%) (Auto) 20 % (24-48) Monocytes (%) (Auto) 7 % (0-9) Eosinophils (%) (Auto) 1 % (0-3) Basophils (%) (Auto) 1 % (0-3) Neutrophils # (Auto) 6.3 x10^3/uL (1.8-7.7) Lymphocytes # (Auto) 1.8 x10^3/uL (1.0-4.8) Monocytes # (Auto) 0.6 x10^3/uL (0.0-1.1) Eosinophils # (Auto) 0.1 x10^3/uL (0.0-0.7) Basophils # (Auto) 0.1 x10^3/uL (0.0-0.2) Prothrombin Time 22.5 SEC (11.7-14.0) Prothromb Time International Ratio 2.0 (0.8-1.1) Sodium Level 142 mmol/L (136-145) Potassium Level 3.6 mmol/L (3.5-5.1) Chloride Level 100 mmol/L (98-107) Carbon Dioxide Level 38 mmol/L (21-32) Anion Gap 4 (6-14) Blood Urea Nitrogen 26 mg/dL (8-26) Creatinine 1.2 mg/dL (0.7-1.3) Estimated GFR (Cockcroft-Gault) 62.0 Glucose Level 94 mg/dL (70-99) Calcium Level 8.8 mg/dL (8.5-10.1) Total Bilirubin 0.6 mg/dL (0.2-1.0) Direct Bilirubin 0.3 mg/dL (0.0-0.2) Aspartate Amino Transf (AST/SGOT) 31 U/L (15-37) Alanine Aminotransferase (ALT/SGPT) 34 U/L (16-63) Alkaline Phosphatase 63 U/L (46-116) Total Protein 7.8 g/dL (6.4-8.2) Albumin 3.6 g/dL (3.4-5.0) Medications Active Scripts Medications Dose Route/Sig Max Daily Dose Days Date Category Dose Instructions Sertraline Hcl 50 Mg Tablet 50 Mg PO DAILY 04/28/21 Reported Xarelto (Rivaroxaban) 20 Mg Tablet 1 Tab PO DAILY 30 04/28/21 Reported with food Losartan Potassium 50 Mg Tablet 25 Mg PO DAILY 04/28/21 Reported Atorvastatin Calcium 20 Mg Tablet 20 Mg PO HS 04/28/21 Reported Spironolactone 50 Mg Tablet 1 Tab PO DAILY 04/28/21 Reported Furosemide 80 Mg Tablet 80 Mg PO DAILY 04/28/21 Reported Ferrous Sulfate 325 Mg Tablet 1 Tab PO PRN Q48HR PRN 04/28/21 Reported Metoprolol Succinate ( Xl ) (Metoprolol Succinate) 25 Mg Tab.er.24h 25 Mg PO DAILY 01/21/21 Rx Impression . IMPRESSION: 1. Acute hypoxemic respiratory failure secondary to acute on chronic diastolic and systolic heart failure. 2. Acute on chronic cor pulmonale. 3. Tobacco dependent. 4. Chronic obstructive pulmonary disease, unknown FEV1. 5. Coronary artery disease as described above. 6. Elevated troponin, suspect non-ST segment elevation myocardial infarction. 7. Paroxysmal atrial fibrillation with recent ablation. 8. Cirrhosis. 9. Positive urine drug screen. Plan . Updated 05/01 Continue to diurese Monitor salt intake Possible discharge in 24 to 48 hours, needs 6-minute walk prior to discharge updated 04/30 Continue to diuresis monitor renal function Continue oxygen supplementation Follow cardiology input ZOLTAN HUGGINS MD May 01, 2021 09:26
[2021-05-01 11:00] VITALS: BP 130/69
--- NOTE | 2021-05-01 11:28 | NUR ---
SS following up with discharge planning. SS reviewed pt chart and discussed with pt RN. Pt is currently requiring oxygen at two liters nasal canula PRN. COVID19 negative. Pt has no home oxygen. Pt on IV Lasix. No PT/OT needs. SS will continue to follow for discharge planning.
--- NOTE | 2021-05-01 12:23 | PDOC ---
AIDA BARBOSA SUSAN 05/01/21 1223: CARDIO Progress Notes Date and Time Date of Service 05/01/21 Time of Evaluation 1220 Subjective Subjective: No Chest Pain, No Palpitations, No Dizziness, Other (breathing and edema improved ) Vitals Vitals Vital Signs Date Time Temp Pulse Resp B/P (MAP) Pulse Ox O2 Delivery O2 Flow Rate FiO2 05/01/21 08:08 75 122/72 05/01/21 08:00 Nasal Cannula 2.0 05/01/21 07:34 97 05/01/21 07:00 97.8 18 97.8 Weight Weight [ ] Input and Output Intake and Output Intake and Output 05/01/21 07:00 Intake Total 1456 ml Output Total 1350 ml Balance 106 ml Intake Oral 1456 ml Output Urine Total 1350 ml # Voids 1 # Bowel Movements 1 Laboratory Labs Laboratory Tests Test 05/01/21 06:45 White Blood Count 8.8 x10^3/uL (4.0-11.0) Red Blood Count 4.92 x10^6/uL (4.30-5.70) Hemoglobin 14.6 g/dL (13.0-17.5) Hematocrit 44.5 % (39.0-53.0) Mean Corpuscular Volume 91 fL (79-100) Mean Corpuscular Hemoglobin 30 pg (25-35) Mean Corpuscular Hemoglobin Concent 33 g/dL (31-37) Red Cell Distribution Width 17.3 % (11.5-14.5) Platelet Count 189 x10^3/uL (140-400) Neutrophils (%) (Auto) 71 % (31-73) Lymphocytes (%) (Auto) 20 % (24-48) Monocytes (%) (Auto) 7 % (0-9) Eosinophils (%) (Auto) 1 % (0-3) Basophils (%) (Auto) 1 % (0-3) Neutrophils # (Auto) 6.3 x10^3/uL (1.8-7.7) Lymphocytes # (Auto) 1.8 x10^3/uL (1.0-4.8) Monocytes # (Auto) 0.6 x10^3/uL (0.0-1.1) Eosinophils # (Auto) 0.1 x10^3/uL (0.0-0.7) Basophils # (Auto) 0.1 x10^3/uL (0.0-0.2) Prothrombin Time 22.5 SEC (11.7-14.0) Prothromb Time International Ratio 2.0 (0.8-1.1) Sodium Level 142 mmol/L (136-145) Potassium Level 3.6 mmol/L (3.5-5.1) Chloride Level 100 mmol/L (98-107) Carbon Dioxide Level 38 mmol/L (21-32) Anion Gap 4 (6-14) Blood Urea Nitrogen 26 mg/dL (8-26) Creatinine 1.2 mg/dL (0.7-1.3) Estimated GFR (Cockcroft-Gault) 62.0 Glucose Level 94 mg/dL (70-99) Calcium Level 8.8 mg/dL (8.5-10.1) Total Bilirubin 0.6 mg/dL (0.2-1.0) Direct Bilirubin 0.3 mg/dL (0.0-0.2) Aspartate Amino Transf (AST/SGOT) 31 U/L (15-37) Alanine Aminotransferase (ALT/SGPT) 34 U/L (16-63) Alkaline Phosphatase 63 U/L (46-116) Total Protein 7.8 g/dL (6.4-8.2) Albumin 3.6 g/dL (3.4-5.0) Physical Exam HEENT: Neck Supple W Full Motion Chest: Symmetric LUNGS: Clear to Auscultation Heart: RRR Abdomen: Soft N/T Extremities: Other (1-2+ bilateral LE edema ) Neurology: alert, oriented, follow commands Assessment Assessment 1. Acute respiratory failure secondary to a/c CHF 2. Acute on chronic systolic CHF 3. Nonischemic cardiomyopathy ; recent echo with LVEF 20-25% 4. CAD; recent cath with moderate nonobstructive disease 5. Mild troponin elevation; peak 0.13. Type II, demand ischemia 6. PAFIB/flutter; s/p recent cardiac ablation at by Dr. Faustin as noted above. Presently SR 7. Accelerated hypertension; now controlled with resumptions of home mesd 8. Hyperlipidemia 9. Diabetes, II 10. CAROL; improved 11. PAD; recent arterial duplex with concerns for right common iliac artery occlusion. Was evaluated by vascular at that time. No critical limb ischemia present 12. Cirrhosis; KAMARA vs alcohol related given h/o heavy use 13. Tobaccoism 14. Substance abuse; UDS + for methamphetamines 15. Suspected noncompliance Recommendations Ongoing diuresis with monitoring or renal function 2000cc FR, 2Gm Na diet Monitor daily weight, I and O's Secondary prevention measures Xarelto for stroke prophylaxis No statin with liver disease Supportive care Consider for outpatient ICD therapies if compliance can be established Reinforced importance of compliance and cessation from recreational drugs. Justicifation of Admission Dx: Justifications for Admission: Justification of Admission Dx: Yes Cellulitis: Cellulitis YO MEAD MD 05/01/212114: CARDIO Progress Notes Assessment Assessment Patient seen and examined. Agree with METAL TECHNICIAN's assessment and plan. Acute respiratory failure secondary to acute on chronic systolic heart failure. 2D echo showed LVEF 20 to 25%. Slight troponin elevation probably demand ischemia. Recent cardiac catheterization showed moderate nonobstructive coronary artery disease. Continue diuresis with close monitoring of renal function. PAF s/p ablation maintaining sinus rhythm PAD clinically stable Agree with outpatient evaluation for AICD implantation AIDA BARBOSA APRN May 01, 2021 12:23 YO MEAD MD May 01, 2021 21:15
--- NOTE | 2021-05-01 14:03 | PDOC ---
[facility] PROGRESS NOTE Date of Service DOS: DATE: 05/01/21 TIME: 14:01 Chief Complaint Chief Complaint 1. Acute hypoxemic respiratory failure secondary to acute on chronic combined heart failure. 2. cor pulmonale. 3. Tobacco abuse disorder with COPD, 4. CAD s/p stents, cardiomyopathy 5. Elevated troponin, non-ST segment elevation myocardial infarction. 6. Paroxysmal atrial fibrillation with recent ablation. 7. Hepatic Cirrhosis. 8. Positive urine drug screen. 9, DM2, obese, BMI 31 History of Present Illness History of Present Illness 05/01, still weak, will need 6 min walk DC soon 04/30 Pt seen and examined No acute overnight events Patient resting in bed comfortably at time of exam Satting ~96 on 4L NC Chart reviewed DWRN and SW 04/29 Patient seen and examined at bedside No acute overnight events Patient satting ~ 91 on 4L by NC Discussed patient's tobacco use, cessation encouraged Discussed pt's liver, cessation of any hepatotoxic drugs and EtOH encouraged Charts reviewed Discussed with RN and SW Vitals/I&O Vitals/I&O: Vital Signs Date Time Temp Pulse Resp B/P (MAP) Pulse Ox O2 Delivery O2 Flow Rate FiO2 05/01/21 12:29 97 Nasal Cannula 2.0 05/01/21 11:00 97.7 95 18 130/69 (89) 97.7 I & O 04/30/21 04/30/21 05/01/21 15:00 23:00 07:00 Intake Total 720 ml 0 ml 736 ml Output Total 1050 ml 300 ml Balance -330 ml 0 ml 436 ml Physical Exam General: Alert, No acute distress Heart: Regular rate (SR/St), Normal S2 Lungs: Crackles Abdomen: Other (ascites ) Extremities: No clubbing, Other (2-3+ bilateral LE edema up to thigh level ) Skin: No rashes, No breakdown Labs Labs: Laboratory Tests Test 05/01/21 06:45 White Blood Count 8.8 x10^3/uL (4.0-11.0) Red Blood Count 4.92 x10^6/uL (4.30-5.70) Hemoglobin 14.6 g/dL (13.0-17.5) Hematocrit 44.5 % (39.0-53.0) Mean Corpuscular Volume 91 fL (79-100) Mean Corpuscular Hemoglobin 30 pg (25-35) Mean Corpuscular Hemoglobin Concent 33 g/dL (31-37) Red Cell Distribution Width 17.3 % (11.5-14.5) Platelet Count 189 x10^3/uL (140-400) Neutrophils (%) (Auto) 71 % (31-73) Lymphocytes (%) (Auto) 20 % (24-48) Monocytes (%) (Auto) 7 % (0-9) Eosinophils (%) (Auto) 1 % (0-3) Basophils (%) (Auto) 1 % (0-3) Neutrophils # (Auto) 6.3 x10^3/uL (1.8-7.7) Lymphocytes # (Auto) 1.8 x10^3/uL (1.0-4.8) Monocytes # (Auto) 0.6 x10^3/uL (0.0-1.1) Eosinophils # (Auto) 0.1 x10^3/uL (0.0-0.7) Basophils # (Auto) 0.1 x10^3/uL (0.0-0.2) Prothrombin Time 22.5 SEC (11.7-14.0) Prothromb Time International Ratio 2.0 (0.8-1.1) Sodium Level 142 mmol/L (136-145) Potassium Level 3.6 mmol/L (3.5-5.1) Chloride Level 100 mmol/L (98-107) Carbon Dioxide Level 38 mmol/L (21-32) Anion Gap 4 (6-14) Blood Urea Nitrogen 26 mg/dL (8-26) Creatinine 1.2 mg/dL (0.7-1.3) Estimated GFR (Cockcroft-Gault) 62.0 Glucose Level 94 mg/dL (70-99) Calcium Level 8.8 mg/dL (8.5-10.1) Total Bilirubin 0.6 mg/dL (0.2-1.0) Direct Bilirubin 0.3 mg/dL (0.0-0.2) Aspartate Amino Transf (AST/SGOT) 31 U/L (15-37) Alanine Aminotransferase (ALT/SGPT) 34 U/L (16-63) Alkaline Phosphatase 63 U/L (46-116) Total Protein 7.8 g/dL (6.4-8.2) Albumin 3.6 g/dL (3.4-5.0) Assessment and Plan Assessmemt and Plan Problems Medical Problems: (1) Amphetamine abuse Status: Acute (2) Anasarca Status: Acute (3) CHF (congestive heart failure) Status: Acute Comment Review of Relevant I have reviewed the following items villa (where applicable) has been applied. Medications: Current Medications Medications (Trade) Dose Ordered Sig/Zo Route PRN Reason Start Time Stop Time Status Last Admin Dose Admin Benzonatate (Tessalon Perle) 100 mg PRN TID PRN PO cough 04/30/21 21:30 04/30/21 21:51 Justifications for Admission Other Justification EDUAR KERR MD May 01, 2021 14:03
[2021-05-01 15:00] VITALS: BP 136/67
[2021-05-01] MEDS: RIVAROXABAN 10 MG TABLET. PO SCH (16:24)
[2021-05-01 19:00] VITALS: BP 113/56
[2021-05-01] MEDS: ATORVASTATIN CALCIUM 20 MG TABLET PO SCH (21:12)
[2021-05-01] MEDS: FAMOTIDINE 20 MG TABLET. PO SCH (21:12)
[2021-05-01 23:00] VITALS: BP 143/78
[2021-05-02 02:37] VITALS: BP 133/70
[2021-05-02 04:50] LABS: CALCIUM 8.6 mg/dL (8.5-10.1); CREATININE 1.2 mg/dL (0.7-1.3); POTASSIUM 3.7 mmol/L (3.5-5.1)
[2021-05-02 05:40] LABS: BASO % 1 % (0-3); EOS # 0.1 x10^3/uL (0.0-0.7); EOS % 2 % (0-3); HEMATOCRIT 43.9 % (39.0-53.0); HEMOGLOBIN 14.3 g/dL (13.0-17.5); LYMPH % 28 % (24-48); MEAN CORPUSCULAR HEMOGLOBIN 30 pg (25-35); MEAN CORPUSCULAR HGB CONC 33 g/dL (31-37); MEAN CORPUSCULAR VOLUME 91 fL (79-100); MONO # 0.7 x10^3/uL (0.0-1.1); MONO % 9 % (0-9); NEUT # 4.3 x10^3/uL (1.8-7.7); NEUT % 61 % (31-73); PLATELET COUNT 177 x10^3/uL (140-400); RED BLOOD COUNT 4.82 x10^6/uL (4.30-5.70); WHITE BLOOD COUNT 7.1 x10^3/uL (4.0-11.0)
[2021-05-02 07:09] VITALS: BP 142/66
[2021-05-02] MEDS: IPRATRPIUM/ALBUTEROL 0.5/2.5MG 3 ML NEBU. NEB SCH ×3 (07:36→15:59)
[2021-05-02] MEDS: METOPROLOL SUCC 24HR ER 25 MG TAB.ER.24H. PO SCH (08:46)
[2021-05-02] MEDS: ASPIRIN ENTERIC COATED 81 MG TABLET.DR. PO SCH (08:46)
[2021-05-02] MEDS: SERTRALINE 50 MG TABLET. PO SCH (08:46)
--- NOTE | 2021-05-02 08:46 | PDOC ---
PULMONARY PROGRESS NOTES DATE: 05/02/21 TIME: 08:45 Subjective Patient feels better, almost back to baseline Vitals Vital Signs Date Time Temp Pulse Resp B/P (MAP) Pulse Ox O2 Delivery O2 Flow Rate FiO2 05/02/21 07:38 96 Nasal Cannula 2.0 05/02/21 07:09 98.0 86 20 142/66 (91) 98.0 ROS: No Nausea, No Abdominal Pain, No Increase Cough Lungs: Crackles Cardiovascular: S1 Abdomen: Soft Neuro Exam: Alert Extremities: No Edema Skin: Warm Labs Laboratory Tests Test 05/01/21 06:45 05/02/21 04:15 White Blood Count 8.8 x10^3/uL (4.0-11.0) 7.1 x10^3/uL (4.0-11.0) Red Blood Count 4.92 x10^6/uL (4.30-5.70) 4.82 x10^6/uL (4.30-5.70) Hemoglobin 14.6 g/dL (13.0-17.5) 14.3 g/dL (13.0-17.5) Hematocrit 44.5 % (39.0-53.0) 43.9 % (39.0-53.0) Mean Corpuscular Volume 91 fL (79-100) 91 fL (79-100) Mean Corpuscular Hemoglobin 30 pg (25-35) 30 pg (25-35) Mean Corpuscular Hemoglobin Concent 33 g/dL (31-37) 33 g/dL (31-37) Red Cell Distribution Width 17.3 % (11.5-14.5) 17.0 % (11.5-14.5) Platelet Count 189 x10^3/uL (140-400) 177 x10^3/uL (140-400) Neutrophils (%) (Auto) 71 % (31-73) 61 % (31-73) Lymphocytes (%) (Auto) 20 % (24-48) 28 % (24-48) Monocytes (%) (Auto) 7 % (0-9) 9 % (0-9) Eosinophils (%) (Auto) 1 % (0-3) 2 % (0-3) Basophils (%) (Auto) 1 % (0-3) 1 % (0-3) Neutrophils # (Auto) 6.3 x10^3/uL (1.8-7.7) 4.3 x10^3/uL (1.8-7.7) Lymphocytes # (Auto) 1.8 x10^3/uL (1.0-4.8) 2.0 x10^3/uL (1.0-4.8) Monocytes # (Auto) 0.6 x10^3/uL (0.0-1.1) 0.7 x10^3/uL (0.0-1.1) Eosinophils # (Auto) 0.1 x10^3/uL (0.0-0.7) 0.1 x10^3/uL (0.0-0.7) Basophils # (Auto) 0.1 x10^3/uL (0.0-0.2) 0.0 x10^3/uL (0.0-0.2) Prothrombin Time 22.5 SEC (11.7-14.0) Prothromb Time International Ratio 2.0 (0.8-1.1) Sodium Level 142 mmol/L (136-145) 141 mmol/L (136-145) Potassium Level 3.6 mmol/L (3.5-5.1) 3.7 mmol/L (3.5-5.1) Chloride Level 100 mmol/L (98-107) 100 mmol/L (98-107) Carbon Dioxide Level 38 mmol/L (21-32) 38 mmol/L (21-32) Anion Gap 4 (6-14) 3 (6-14) Blood Urea Nitrogen 26 mg/dL (8-26) 26 mg/dL (8-26) Creatinine 1.2 mg/dL (0.7-1.3) 1.2 mg/dL (0.7-1.3) Estimated GFR (Cockcroft-Gault) 62.0 62.0 Glucose Level 94 mg/dL (70-99) 121 mg/dL (70-99) Calcium Level 8.8 mg/dL (8.5-10.1) 8.6 mg/dL (8.5-10.1) Total Bilirubin 0.6 mg/dL (0.2-1.0) Direct Bilirubin 0.3 mg/dL (0.0-0.2) Aspartate Amino Transf (AST/SGOT) 31 U/L (15-37) Alanine Aminotransferase (ALT/SGPT) 34 U/L (16-63) Alkaline Phosphatase 63 U/L (46-116) Total Protein 7.8 g/dL (6.4-8.2) Albumin 3.6 g/dL (3.4-5.0) Laboratory Tests Test 05/02/21 04:15 White Blood Count 7.1 x10^3/uL (4.0-11.0) Red Blood Count 4.82 x10^6/uL (4.30-5.70) Hemoglobin 14.3 g/dL (13.0-17.5) Hematocrit 43.9 % (39.0-53.0) Mean Corpuscular Volume 91 fL (79-100) Mean Corpuscular Hemoglobin 30 pg (25-35) Mean Corpuscular Hemoglobin Concent 33 g/dL (31-37) Red Cell Distribution Width 17.0 % (11.5-14.5) Platelet Count 177 x10^3/uL (140-400) Neutrophils (%) (Auto) 61 % (31-73) Lymphocytes (%) (Auto) 28 % (24-48) Monocytes (%) (Auto) 9 % (0-9) Eosinophils (%) (Auto) 2 % (0-3) Basophils (%) (Auto) 1 % (0-3) Neutrophils # (Auto) 4.3 x10^3/uL (1.8-7.7) Lymphocytes # (Auto) 2.0 x10^3/uL (1.0-4.8) Monocytes # (Auto) 0.7 x10^3/uL (0.0-1.1) Eosinophils # (Auto) 0.1 x10^3/uL (0.0-0.7) Basophils # (Auto) 0.0 x10^3/uL (0.0-0.2) Sodium Level 141 mmol/L (136-145) Potassium Level 3.7 mmol/L (3.5-5.1) Chloride Level 100 mmol/L (98-107) Carbon Dioxide Level 38 mmol/L (21-32) Anion Gap 3 (6-14) Blood Urea Nitrogen 26 mg/dL (8-26) Creatinine 1.2 mg/dL (0.7-1.3) Estimated GFR (Cockcroft-Gault) 62.0 Glucose Level 121 mg/dL (70-99) Calcium Level 8.6 mg/dL (8.5-10.1) Medications Active Scripts Medications Dose Route/Sig Max Daily Dose Days Date Category Dose Instructions Sertraline Hcl 50 Mg Tablet 50 Mg PO DAILY 04/28/21 Reported Xarelto (Rivaroxaban) 20 Mg Tablet 1 Tab PO DAILY 30 04/28/21 Reported with food Losartan Potassium 50 Mg Tablet 25 Mg PO DAILY 04/28/21 Reported Atorvastatin Calcium 20 Mg Tablet 20 Mg PO HS 04/28/21 Reported Spironolactone 50 Mg Tablet 1 Tab PO DAILY 04/28/21 Reported Furosemide 80 Mg Tablet 80 Mg PO DAILY 04/28/21 Reported Ferrous Sulfate 325 Mg Tablet 1 Tab PO PRN Q48HR PRN 04/28/21 Reported Metoprolol Succinate ( Xl ) (Metoprolol Succinate) 25 Mg Tab.er.24h 25 Mg PO DAILY 01/21/21 Rx Impression . IMPRESSION: 1. Acute hypoxemic respiratory failure secondary to acute on chronic diastolic and systolic heart failure. 2. Acute on chronic cor pulmonale. 3. Tobacco dependent. 4. Chronic obstructive pulmonary disease, unknown FEV1. 5. Coronary artery disease as described above. 6. Elevated troponin, suspect non-ST segment elevation myocardial infarction. 7. Paroxysmal atrial fibrillation with recent ablation. 8. Cirrhosis. 9. Positive urine drug screen. Plan . Updated 05/[address] Hughes 6-minute walk Discharge home Follow-up with me in June updated 05/01 Continue to diurese Monitor salt intake Possible discharge in 24 to 48 hours, needs 6-minute walk prior to discharge updated 04/30 Continue to diuresis monitor renal function Continue oxygen supplementation Follow cardiology input ZOLTAN HUGGINS MD May 02, 2021 08:46
[2021-05-02] MEDS: SPIRONOLACTONE 25 MG TABLET PO SCH (08:47)
[2021-05-02] MEDS: LOSARTAN POTASSIUM 50 MG TABLET. PO SCH (08:47)
[2021-05-02] MEDS: FUROSEMIDE 40 MG/4 ML VIAL. IVP SCH (08:48)
--- NOTE | 2021-05-02 10:25 | PDOC ---
JOSE MACK O[employer] WASHER 05/02/21 1025: CARDIO Progress Notes Date and Time Date of Service 05/02/2021 Time of Evaluation 1000 Subjective Subjective: No Chest Pain, No Palpitations, No Dizziness, Other (breathing and edema improved ) Vitals Vitals Vital Signs Date Time Temp Pulse Resp B/P (MAP) Pulse Ox O2 Delivery O2 Flow Rate FiO2 05/02/21 08:47 86 142/66 05/02/21 07:38 96 Nasal Cannula 2.0 05/02/21 07:09 98.0 20 98.0 Weight Weight [ ] Input and Output Intake and Output Intake and Output 05/02/21 06:59 Intake Total 220 ml Output Total 2400 ml Balance -2180 ml Intake Oral 220 ml Output Urine Total 2400 ml Laboratory Labs Laboratory Tests Test 05/02/21 04:15 White Blood Count 7.1 x10^3/uL (4.0-11.0) Red Blood Count 4.82 x10^6/uL (4.30-5.70) Hemoglobin 14.3 g/dL (13.0-17.5) Hematocrit 43.9 % (39.0-53.0) Mean Corpuscular Volume 91 fL (79-100) Mean Corpuscular Hemoglobin 30 pg (25-35) Mean Corpuscular Hemoglobin Concent 33 g/dL (31-37) Red Cell Distribution Width 17.0 % (11.5-14.5) Platelet Count 177 x10^3/uL (140-400) Neutrophils (%) (Auto) 61 % (31-73) Lymphocytes (%) (Auto) 28 % (24-48) Monocytes (%) (Auto) 9 % (0-9) Eosinophils (%) (Auto) 2 % (0-3) Basophils (%) (Auto) 1 % (0-3) Neutrophils # (Auto) 4.3 x10^3/uL (1.8-7.7) Lymphocytes # (Auto) 2.0 x10^3/uL (1.0-4.8) Monocytes # (Auto) 0.7 x10^3/uL (0.0-1.1) Eosinophils # (Auto) 0.1 x10^3/uL (0.0-0.7) Basophils # (Auto) 0.0 x10^3/uL (0.0-0.2) Sodium Level 141 mmol/L (136-145) Potassium Level 3.7 mmol/L (3.5-5.1) Chloride Level 100 mmol/L (98-107) Carbon Dioxide Level 38 mmol/L (21-32) Anion Gap 3 (6-14) Blood Urea Nitrogen 26 mg/dL (8-26) Creatinine 1.2 mg/dL (0.7-1.3) Estimated GFR (Cockcroft-Gault) 62.0 Glucose Level 121 mg/dL (70-99) Calcium Level 8.6 mg/dL (8.5-10.1) Physical Exam HEENT: Neck Supple W Full Motion Chest: Symmetric LUNGS: Other (diminished bases) Heart: RRR (SR) Abdomen: Soft N/T Extremities: Other (1+ bilateral LE pittin edema) Neurology: alert, oriented, follow commands Assessment Assessment 1. Acute respiratory failure secondary to a/c CHF 2. Acute on chronic systolic CHF: appears compensated 3. Nonischemic cardiomyopathy ; recent echo with LVEF 20-25% 4. CAD; recent cath with moderate nonobstructive disease 5. Mild troponin elevation; peak 0.13. Type II, demand ischemia 6. PAFIB/flutter; s/p recent cardiac ablation at by Dr. Faustin as noted above. Maintaining SR 7. Accelerated hypertension; controlled 8. Hyperlipidemia 9. Diabetes, II 10. CAROL; improved 11. PAD; recent arterial duplex with concerns for right common iliac artery occlusion. Was evaluated by vascular at that time. No critical limb ischemia present 12. Cirrhosis; KAMARA vs alcohol related given h/o heavy use 13. Tobaccoism 14. Substance abuse; UDS + for methamphetamines 15. Suspected noncompliance Recommendations Lasix therapy. Continue HF regimen per GDMT 2000cc FR, 2Gm Na diet Monitor daily weight, I and O's Secondary prevention measures Xarelto for stroke prophylaxis Supportive care Consider for outpatient ICD therapies if compliance can be established Reinforced importance of compliance and cessation from recreational drugs. May DC from cardiac perspective. 6 min walk prior to DC. Follow up with cardiology Justicifation of Admission Dx: Justifications for Admission: Justification of Admission Dx: Yes Cellulitis: Cellulitis YO MEAD MD 05/02/21 9706: CARDIO Progress Notes Assessment Assessment Patient seen and examined. Agree with SPOOL HAULER's assessment and plan. Acute respiratory failure secondary to acute on chronic systolic heart failure. 2D echo showed LVEF 20 to 25%. Slight troponin elevation probably demand ischemia. Recent cardiac catheterization showed moderate nonobstructive coronary artery disease. Continue diuresis with close monitoring of renal function. PAF s/p ablation maintaining sinus rhythm PAD clinically stable Agree with outpatient evaluation for AICD implantation JOSE MACK APRN May 02, 2021 10:25 YO MEAD MD May 02, 2021 14:09
[2021-05-02] MEDS ORDERED: METOPROLOL SUCC 24HR ER 25 MG TAB.ER.24H. PO ONE (10:30)
[2021-05-02 11:00] VITALS: BP 120/64
[2021-05-02] MEDS ORDERED: METO-239 PO (12:40)
--- NOTE | 2021-05-02 12:41 | PDOC ---
[facility] [facility] PROGRESS NOTE Date of Service DOS: DATE: 05/02/21 TIME: 12:41 Chief Complaint Chief Complaint 1. Acute hypoxemic respiratory failure secondary to acute on chronic combined heart failure. 2. cor pulmonale. 3. Tobacco abuse disorder with COPD, 4. CAD s/p stents, cardiomyopathy 5. Elevated troponin, non-ST segment elevation myocardial infarction. 6. Paroxysmal atrial fibrillation with recent ablation. 7. Hepatic Cirrhosis. 8. Positive urine drug screen. 9, DM2, obese, BMI 31 History of Present Illness History of Present Illness 05/02, DC home Vitals/I&O Vitals/I&O: Vital Signs Date Time Temp Pulse Resp B/P (MAP) Pulse Ox O2 Delivery O2 Flow Rate FiO2 05/02/21 11:34 97 Nasal Cannula 2.0 05/02/21 11:32 79 120/64 05/02/21 11:00 98.7 17 98.7 I & O 05/01/21 05/01/21 05/02/21 15:00 23:00 07:00 Intake Total 120 ml 100 ml Output Total 800 ml 800 ml 800 ml Balance -800 ml -680 ml -700 ml Physical Exam General: Alert, No acute distress Heart: Regular rate (SR/St), Normal S2 Lungs: Crackles Abdomen: Other (ascites ) Extremities: No clubbing, Other (2-3+ bilateral LE edema up to thigh level ) Skin: No rashes, No breakdown Labs Labs: Laboratory Tests Test 05/02/21 04:15 White Blood Count 7.1 x10^3/uL (4.0-11.0) Red Blood Count 4.82 x10^6/uL (4.30-5.70) Hemoglobin 14.3 g/dL (13.0-17.5) Hematocrit 43.9 % (39.0-53.0) Mean Corpuscular Volume 91 fL (79-100) Mean Corpuscular Hemoglobin 30 pg (25-35) Mean Corpuscular Hemoglobin Concent 33 g/dL (31-37) Red Cell Distribution Width 17.0 % (11.5-14.5) Platelet Count 177 x10^3/uL (140-400) Neutrophils (%) (Auto) 61 % (31-73) Lymphocytes (%) (Auto) 28 % (24-48) Monocytes (%) (Auto) 9 % (0-9) Eosinophils (%) (Auto) 2 % (0-3) Basophils (%) (Auto) 1 % (0-3) Neutrophils # (Auto) 4.3 x10^3/uL (1.8-7.7) Lymphocytes # (Auto) 2.0 x10^3/uL (1.0-4.8) Monocytes # (Auto) 0.7 x10^3/uL (0.0-1.1) Eosinophils # (Auto) 0.1 x10^3/uL (0.0-0.7) Basophils # (Auto) 0.0 x10^3/uL (0.0-0.2) Sodium Level 141 mmol/L (136-145) Potassium Level 3.7 mmol/L (3.5-5.1) Chloride Level 100 mmol/L (98-107) Carbon Dioxide Level 38 mmol/L (21-32) Anion Gap 3 (6-14) Blood Urea Nitrogen 26 mg/dL (8-26) Creatinine 1.2 mg/dL (0.7-1.3) Estimated GFR (Cockcroft-Gault) 62.0 Glucose Level 121 mg/dL (70-99) Calcium Level 8.6 mg/dL (8.5-10.1) Assessment and Plan Assessmemt and Plan Problems Medical Problems: (1) Amphetamine abuse Status: Acute (2) Anasarca Status: Acute (3) CHF (congestive heart failure) Status: Acute Comment Review of Relevant I have reviewed the following items villa (where applicable) has been applied. Medications: Current Medications Medications (Trade) Dose Ordered Sig/Zo Route PRN Reason Start Time Stop Time Status Last Admin Dose Admin Metoprolol Succinate (Toprol Xl) 25 mg 1X ONCE PO 05/02/21 10:30 05/02/21 10:31 DC 05/02/21 11:32 Justifications for Admission Other Justification EDUAR KERR MD May 02, 2021 12:41
--- NOTE | 2021-05-02 12:43 | PDOC3 ---
Discharge Summary Visit Information Date of Admission: Apr 28, 2021 Date of Discharge: May 02, 2021 Final Diagnosis 1. Acute hypoxemic respiratory failure secondary to acute on chronic combined heart failure. 2. cor pulmonale. 3. Tobacco abuse disorder with COPD, 4. CAD s/p stents, cardiomyopathy 5. Elevated troponin, non-ST segment elevation myocardial infarction. 6. Paroxysmal atrial fibrillation with recent ablation. 7. Hepatic Cirrhosis. 8. Positive urine drug screen. 9, DM2, obese, BMI 31 Problems Medical Problems: (1) Amphetamine abuse Status: Acute (2) Anasarca Status: Acute (3) CHF (congestive heart failure) Status: Acute Brief Hospital Course Allergies Allergies Coded Allergies Type Severity Reaction Last Updated Verified ibuprofen Adverse Reaction Intermediate NAUSEA 04/28/21 Yes Vital Signs Vital Signs Date Time Temp Pulse Resp B/P (MAP) Pulse Ox O2 Delivery O2 Flow Rate FiO2 05/02/21 11:34 97 Nasal Cannula 2.0 05/02/21 11:32 79 120/64 05/02/21 11:00 98.7 17 98.7 Lab Results Laboratory Tests Test 05/01/21 06:45 05/02/21 04:15 White Blood Count 8.8 x10^3/uL (4.0-11.0) 7.1 x10^3/uL (4.0-11.0) Red Blood Count 4.92 x10^6/uL (4.30-5.70) 4.82 x10^6/uL (4.30-5.70) Hemoglobin 14.6 g/dL (13.0-17.5) 14.3 g/dL (13.0-17.5) Hematocrit 44.5 % (39.0-53.0) 43.9 % (39.0-53.0) Mean Corpuscular Volume 91 fL (79-100) 91 fL (79-100) Mean Corpuscular Hemoglobin 30 pg (25-35) 30 pg (25-35) Mean Corpuscular Hemoglobin Concent 33 g/dL (31-37) 33 g/dL (31-37) Red Cell Distribution Width 17.3 % (11.5-14.5) 17.0 % (11.5-14.5) Platelet Count 189 x10^3/uL (140-400) 177 x10^3/uL (140-400) Neutrophils (%) (Auto) 71 % (31-73) 61 % (31-73) Lymphocytes (%) (Auto) 20 % (24-48) 28 % (24-48) Monocytes (%) (Auto) 7 % (0-9) 9 % (0-9) Eosinophils (%) (Auto) 1 % (0-3) 2 % (0-3) Basophils (%) (Auto) 1 % (0-3) 1 % (0-3) Neutrophils # (Auto) 6.3 x10^3/uL (1.8-7.7) 4.3 x10^3/uL (1.8-7.7) Lymphocytes # (Auto) 1.8 x10^3/uL (1.0-4.8) 2.0 x10^3/uL (1.0-4.8) Monocytes # (Auto) 0.6 x10^3/uL (0.0-1.1) 0.7 x10^3/uL (0.0-1.1) Eosinophils # (Auto) 0.1 x10^3/uL (0.0-0.7) 0.1 x10^3/uL (0.0-0.7) Basophils # (Auto) 0.1 x10^3/uL (0.0-0.2) 0.0 x10^3/uL (0.0-0.2) Prothrombin Time 22.5 SEC (11.7-14.0) Prothromb Time International Ratio 2.0 (0.8-1.1) Sodium Level 142 mmol/L (136-145) 141 mmol/L (136-145) Potassium Level 3.6 mmol/L (3.5-5.1) 3.7 mmol/L (3.5-5.1) Chloride Level 100 mmol/L (98-107) 100 mmol/L (98-107) Carbon Dioxide Level 38 mmol/L (21-32) 38 mmol/L (21-32) Anion Gap 4 (6-14) 3 (6-14) Blood Urea Nitrogen 26 mg/dL (8-26) 26 mg/dL (8-26) Creatinine 1.2 mg/dL (0.7-1.3) 1.2 mg/dL (0.7-1.3) Estimated GFR (Cockcroft-Gault) 62.0 62.0 Glucose Level 94 mg/dL (70-99) 121 mg/dL (70-99) Calcium Level 8.8 mg/dL (8.5-10.1) 8.6 mg/dL (8.5-10.1) Total Bilirubin 0.6 mg/dL (0.2-1.0) Direct Bilirubin 0.3 mg/dL (0.0-0.2) Aspartate Amino Transf (AST/SGOT) 31 U/L (15-37) Alanine Aminotransferase (ALT/SGPT) 34 U/L (16-63) Alkaline Phosphatase 63 U/L (46-116) Total Protein 7.8 g/dL (6.4-8.2) Albumin 3.6 g/dL (3.4-5.0) Laboratory Tests Test 05/02/21 04:15 White Blood Count 7.1 x10^3/uL (4.0-11.0) Red Blood Count 4.82 x10^6/uL (4.30-5.70) Hemoglobin 14.3 g/dL (13.0-17.5) Hematocrit 43.9 % (39.0-53.0) Mean Corpuscular Volume 91 fL (79-100) Mean Corpuscular Hemoglobin 30 pg (25-35) Mean Corpuscular Hemoglobin Concent 33 g/dL (31-37) Red Cell Distribution Width 17.0 % (11.5-14.5) Platelet Count 177 x10^3/uL (140-400) Neutrophils (%) (Auto) 61 % (31-73) Lymphocytes (%) (Auto) 28 % (24-48) Monocytes (%) (Auto) 9 % (0-9) Eosinophils (%) (Auto) 2 % (0-3) Basophils (%) (Auto) 1 % (0-3) Neutrophils # (Auto) 4.3 x10^3/uL (1.8-7.7) Lymphocytes # (Auto) 2.0 x10^3/uL (1.0-4.8) Monocytes # (Auto) 0.7 x10^3/uL (0.0-1.1) Eosinophils # (Auto) 0.1 x10^3/uL (0.0-0.7) Basophils # (Auto) 0.0 x10^3/uL (0.0-0.2) Sodium Level 141 mmol/L (136-145) Potassium Level 3.7 mmol/L (3.5-5.1) Chloride Level 100 mmol/L (98-107) Carbon Dioxide Level 38 mmol/L (21-32) Anion Gap 3 (6-14) Blood Urea Nitrogen 26 mg/dL (8-26) Creatinine 1.2 mg/dL (0.7-1.3) Estimated GFR (Cockcroft-Gault) 62.0 Glucose Level 121 mg/dL (70-99) Calcium Level 8.6 mg/dL (8.5-10.1) Brief Hospital Course Mr. Harkins is a 60 old male with known AFIB, admit with increasing shortness of breath, fluid retention and increasing lower extremity edema. Metoprolol increased, LASIX iv, pulm and CV cnsult, better at 4 days f/u [facility] cardio Discharge Information Condition at Discharge: Improved Follow Up: Weeks Disposition/Orders: D/C to Home Scheduled Atorvastatin Calcium (Atorvastatin Calcium) 20 Mg Tablet, 20 MG PO HS for FOR CHOLESTEROL, #30 Ref 0 (Reported) Entered as Reported by: YAYO ALVAREZ on 04/28/211323 Last Action: Continued on 04/28/211324 by YAYO ALVAREZ Furosemide (Furosemide) 80 Mg Tablet, 80 MG PO DAILY for diuretic, (Reported) Entered as Reported by: YAYO ALVAREZ on 04/28/211323 Last Action: New Order on 04/28/211323 by YAYO ALVAREZ Losartan Potassium (Losartan Potassium) 50 Mg Tablet, 25 MG PO DAILY for HYPE RTENSION, (Reported) Entered as Reported by: YAYO ALVAREZ on 04/28/211323 Last Action: Continued on 04/28/211324 by YAYO ALVAREZ Metoprolol Succinate (Metoprolol Succinate ( Xl )) 25 Mg Tab.er.24h, 50 MG PO DAILY for htn, #60 50 mg PO daily Prescribed by: EDUAR KERR on 05/02/21 1240 Rivaroxaban (Xarelto) 20 Mg Tablet, 1 TAB PO DAILY for crdiac for 30 Days, #30 Ref 0 (Reported) with food Entered as Reported by: YAYO ALVAREZ on 04/28/211323 Last Action: Converted on 04/28/211324 by YAYO ALVAREZ Sertraline Hcl (Sertraline Hcl) 50 Mg Tablet, 50 MG PO DAILY for ANTI- DEPRESSANT, Ref 0 (Reported) Entered as Reported by: YAYO ALVAREZ on 04/28/211323 Last Action: Continued on 04/28/211328 by YAYO ALVAREZ Spironolactone (Spironolactone) 50 Mg Tablet, 1 TAB PO DAILY for diuretic, #30 Ref 5 (Reported) Entered as Reported by: YAYO ALVAREZ on 04/28/211323 Last Action: Converted on 04/28/211324 by YAYO ALVAREZ Scheduled PRN Ferrous Sulfate (Ferrous Sulfate) 325 Mg Tablet, 1 TAB PO PRN Q48HR PRN for replacement, #30 Ref 3 (Reported) Entered as Reported by: YAYO ALVAREZ on 04/28/211323 Last Action: Continued on 04/28/211324 by YAYO ALVAREZ Discontinued Medications Metoprolol Succinate (Metoprolol Succinate ( Xl )) 25 Mg Tab.er.24h, 25 MG PO DAILY for CHF, #30 Ref 2 Prescribed by: LEX BOGGS MD on 01/21/21 1343 Last Action: Continued on 04/28/21 114 by SUPRIYA AGOSTO Patient Instructions Patient Instructions face to face > 32 minutes of coordination Justicifation of Admission Dx: Justifications for Admission: Justification of Admission Dx: Yes Cellulitis: Cellulitis EDUAR KERR MD May 02, 2021 12:43
[2021-05-02 16:02] VITALS: BP 103/58
[2021-05-02] MEDS: RIVAROXABAN 10 MG TABLET. PO SCH (17:52)
[2021-05-03] MEDS ORDERED: FUROSEMIDE 40 MG TABLET. PO SCH (09:00)
[2021-05-03] MEDS ORDERED: LOSARTAN POTASSIUM 50 MG TABLET. PO SCH (09:00)
[2021-05-03] MEDS ORDERED: METOPROLOL SUCC 24HR ER 25 MG TAB.ER.24H. PO SCH (09:00)
== END 2021-05-02 18:20 | disposition home or self-care (01) | DRG 280 ==
LOC: ER 04:09 → 6 SOUTH 04:32
PROVIDERS: ADMIT Student in an Organized Health Care Education/Training Program; ATTEND Student in an Organized Health Care Education/Training Program
DX: I11.0 Hypertensive heart disease with heart failure (principal); I50.43 Acute on chronic combined systolic (congestive) and diastolic (congestive) heart failure; I21.4 Non-ST elevation (NSTEMI) myocardial infarction; J96.01 Acute respiratory failure with hypoxia; N17.9 Acute kidney failure, unspecified; I48.92 Unspecified atrial flutter; I48.20 Chronic atrial fibrillation, unspecified; I42.8 Other cardiomyopathies; E11.9 Type 2 diabetes mellitus without complications; E66.9 Obesity, unspecified; E78.5 Hyperlipidemia, unspecified; F15.10 Other stimulant abuse, uncomplicated; F17.210 Nicotine dependence, cigarettes, uncomplicated; G56.03 Carpal tunnel syndrome, bilateral upper limbs; I25.10 Atherosclerotic heart disease of native coronary artery without angina pectoris; I25.2 Old myocardial infarction; I27.81 Cor pulmonale (chronic); I48.0 Paroxysmal atrial fibrillation; J44.9 Chronic obstructive pulmonary disease, unspecified; K57.90 Diverticulosis of intestine, part unspecified, without perforation or abscess without bleeding; K74.60 Unspecified cirrhosis of liver; K75.81 Nonalcoholic steatohepatitis (NASH); K80.20 Calculus of gallbladder without cholecystitis without obstruction; Z68.31 Body mass index [BMI] 31.0-31.9, adult; Z79.01 Long term (current) use of anticoagulants; Z82.49 Family history of ischemic heart disease and other diseases of the circulatory system; Z95.5 Presence of coronary angioplasty implant and graft; K21.9 Gastro-esophageal reflux disease without esophagitis; Z20.822 Contact with and (suspected) exposure to COVID-19; Z88.8 Allergy status to other drugs, medicaments and biological substances
CPT/HCPCS: 36415; 36600; 71045; 76705; 80048; 80053; 80076; 80307; 81001; 82805; 83880; 84484; 85025; 85610; 86705; 86709; 86803; 87340; 87426; 90471; 90686; 94618; 94640; 94760; 96374; J1940; J2920; U0003; U0005; 99285-25; G0378